=== PATIENT | male | born 1945 | race Caucasian/White ===

== ENCOUNTER 2018-03-11 09:30 | Inpatient (IN) ==
[~2018-03-11 09:30] MED LIST: BACITRACIN IR ONE; NEOSTIGMINE INJ ONE; [UNRECOGNIZED DRUG - OTHER] IR ONE
[2018-03-11] MEDS ORDERED: LR 1000 ML IV 1,000 ML IV ONE ×3 (09:59→12:59)
[2018-03-11] MEDS ORDERED: ANCEF 1 GRAM IV PREMIX* 1 G/50 ML BAG IV ONE (09:59)
[2018-03-11 10:15] VITALS: BMI 23.5
[2018-03-11] MEDS ORDERED: FENTANYL INJ 100 mcg ONE ×2 (10:41→11:29)
[2018-03-11] MEDS ORDERED: DILAUDID INJ ONE ×2 (10:41→13:20)
[2018-03-11] MEDS ORDERED: FENTANYL INJ 250 mcg ONE (10:41)
[2018-03-11] MEDS ORDERED: LEVAQUIN PREMIX IV 500 MG 500 MG/100 ML BAG IV ONE (11:11)
[2018-03-11 11:15] LABS: HEMATOCRIT 31.5 % (42.0-54.0); HEMOGLOBIN 10.1 g/dL (13.5-18.0)
[2018-03-11 11:24] LABS: BILIRUBIN,URINE NEGATIVE (NEGATIVE); BLOOD/HEMOGLOBIN,URINE 3+ (NEGATIVE); GLUCOSE, URINE NEGATIVE (NEGATIVE); KETONES,URINE NEGATIVE (NEGATIVE); LEUKOCYTE ESTERASE ,URINE NEGATIVE (NEGATIVE); NITRITES,URINE NEGATIVE (NEGATIVE); PROTEIN,URINE 2+ (NEGATIVE); UROBILINOGEN,URINE NORMAL (NORMAL)
[2018-03-11 11:33] LABS: APPEARANCE,URINE SLIGHTLY HAZY (CLEAR); COLOR,URINE YELLOW (YELLOW)
[2018-03-11 11:34] LABS: BACTERIA,URINE TRACE /HPF (NEGATIVE); MUCUS,URINE MANY /HPF (NEGATIVE); SQUAMOUS EPITHELIAL CELL,UR RARE /HPF (NEGATIVE)
[2018-03-11] MEDS ORDERED: BREVIBLOC ONE (13:42)
[2018-03-11] MEDS ORDERED: ZOFRAN INJ 4 MG VIAL IVP PRN (14:00)
[2018-03-11] MEDS ORDERED: PHENERGAN INJ 25 MG IVP PRN (14:00)
[2018-03-11] MEDS ORDERED: REGLAN INJ 10 MG VIAL IVP PRN (14:00)
[2018-03-11] MEDS ORDERED: BENADRYL INJ 50 MG VIAL IVP PRN (14:00)
[2018-03-11] MEDS ORDERED: DILAUDID INJ IVP PRN (14:00)
--- NOTE | 2018-03-11 14:47 | OR.GENERIC ---
Post-Op Note Generic - Post-Op Note Operative Report: exploratory laparotomy , resection of T colon with primary anastomosis . mobilization of splenic ,and hepatic flexures, omentectomy . . liver Bx x 2. 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 at least two liver nodules . palpable mesenteric nodes .. Pt did well , EBL 200 cc . on IVF .ATB for 24 h . DVT prophylaxis .
[2018-03-11] MEDS ORDERED: DIPRIVAN VIAL ONE (15:06)
[2018-03-11] MEDS ORDERED: ULTANE GAS IN ONE (15:06)
[2018-03-11] MEDS ORDERED: EPHEDRINE SULFATE INJ ONE (15:06)
[2018-03-11] MEDS ORDERED: QUELICIN (OR ANECTINE) ONE (15:06)
[2018-03-11] MEDS ORDERED: ZOFRAN INJ 4 MG VIAL ONE (15:06)
[2018-03-11] MEDS ORDERED: NORCURON INJ 10 MG VIAL ONE (15:06)
[2018-03-11] MEDS ORDERED: LTA KIT LIDOCAINE 4% ONE (15:06)
[2018-03-11] MEDS ORDERED: VERSED ONE (15:06)
[2018-03-11] MEDS ORDERED: ROBINUL ONE (15:06)
[2018-03-11] MEDS: D5 1/2 NS 1000 ML 1,000 ML IV SCH ×2 (15:25→22:00)
--- NOTE | 2018-03-11 16:07 | RAD ---
Indication: Tube placement Exam: KUB Technique: Supine view. Comparison: 01/14/2018 Findings: The gas pattern is unremarkable. There is a gastric tube in place the tip in the fundus of the stomach. Impression: Gastric tube tip along the fundus of the stomach. Reported By:
[2018-03-11] MEDS: DILAUDID INJ IVP PRN ×2 (19:35→23:32)
[2018-03-12] MEDS: D5 1/2 NS 1000 ML 1,000 ML IV SCH ×4 (04:23→17:46)
[2018-03-12 04:29] LABS: BASOPHILS % (AUTO) 0.4 % (0.2-1.0); HEMATOCRIT 26.4 % (42.0-54.0); HEMOGLOBIN 8.6 g/dL (13.5-18.0); LYMPHOCYTES # (AUTO) 0.7 X10^3/uL (1.3-2.9); LYMPHOCYTES % (AUTO) 9.3 % (21.0-51.0); MEAN CORPUSCULAR HEMOGLOBIN 23.1 pg (27.0-34.0); MEAN CORPUSCULAR HGB CONC 32.4 g/dL (33.0-35.0); MEAN CORPUSCULAR VOLUME 71.3 fL (80.0-100.0); MEAN PLATELET VOLUME 7.5 fL (7.4-11.0); MONOCYTES # (AUTO) 0.5 x10^3/uL (0.3-0.8); MONOCYTES % (AUTO) 7.1 % (0.0-13.0); NEUTROPHILS # (AUTO) 6.3 x10^3/uL (2.2-4.8); NEUTROPHILS % (AUTO) 83.2 % (42.0-75.0); PLATELET COUNT 274 X10^3/uL (150.0-450.0); WHITE BLOOD COUNT 7.6 X10^3/uL (3.6-10.0)
[2018-03-12 04:38] LABS: HYPOCHROMASIA 1+; PLATELET MORPHOLOGY COMMENT NORMAL (NORMAL)
[2018-03-12 04:40] LABS: ALANINE AMINOTRANSFERASE 15 Units/L (12-78); ALBUMIN 2.6 g/dL (3.4-5.0); ALKALINE PHOSPHATASE 50 Units/L (46-116); ASPARTATE AMINO TRANSFERASE 22 Units/L (15-37); BLOOD UREA NITROGEN 8 mg/dL (7-18); CALCIUM 8.1 mg/dL (8.5-10.1); CARBON DIOXIDE 25.3 mmol/L (21-32); CHLORIDE 101 mmol/L (98-107); COR CA(FOR HYPOALB) 9.2 mg/dL (8.5-10.1); COR NA(FOR HYPERGLY) 137 mmol/L (136-145); CREATININE 0.93 mg/dL (0.70-1.30); SODIUM 135 mmol/L (136-145); TOTAL PROTEIN 6.5 g/dL (6.4-8.2); eGFR NON BLACK RACES > 60 (>60)
[2018-03-12] MEDS: DILAUDID INJ IVP PRN ×4 (07:40→18:30)
[2018-03-12] MEDS: LEVAQUIN PREMIX IV 500 MG 500 MG/100 ML BAG IV SCH (08:07)
[2018-03-12] MEDS: PROTONIX INJ 40 MG VIAL IVP SCH (08:07)
[2018-03-12] MEDS: LOVENOX INJ 40 MG SYR SC SCH (08:07)
--- NOTE | 2018-03-12 08:47 | DR.PROGNOT ---
Hospital Progress Notes - Progress Note for Day of: Progress Note Date: 03/12/18 - Chief Complaint Chief Complaint: post op resection of transverse colon , omentectomy , liver Bx . doing fairly well ,. c/o incisional pain , Lab work WNL . - Past Medical Family Social History Past Med/Fam/Surg Hx: No changes since H&P Allergies: Allergies No Known Allergies Allergy (Verified 03/11/18 14:06) - Review Of Systems ROS: No change since H&P - Vital Signs Vital Signs: Temperature 98.2 F Pulse Rate [Right Brachial] 88 Pulse Rate 97 Respiratory Rate 20 Blood Pressure [Right Arm] 127/76 Blood Pressure 172/87 O2 Sat by Pulse Oximetry 97 - Physical Exam Oriented: Normal Eyes: Normal Ear: Normal Nose: Normal Cardiovascular: Normal : Normal GI:Auscultation: Decreased GI:Palpation: Normal GI: Tenderness: Diffuse, Moderate Mood Description: Calm Speech Pattern: Clear, Appropriate - Laboratory and Diagnostics Result Diagrams: 03/12/18 04:20 03/12/18 04:20 Labs: Laboratory WBC 7.6 X10^3/uL (3.6-10.0) 03/12/18 04:20 RBC 3.70 X10^6/uL (4.7-6.0) L 03/12/18 04:20 Hgb 8.6 g/dL (13.5-18.0) L 03/12/18 04:20 Hct 26.4 % (42.0-54.0) L 03/12/18 04:20 MCV 71.3 fL (80.0-100.0) L 03/12/18 04:20 MCH 23.1 pg (27.0-34.0) L 03/12/18 04:20 MCHC 32.4 g/dL (33.0-35.0) L 03/12/18 04:20 RDW 18.0 % (11.6-16.5) H 03/12/18 04:20 Plt Count 274 X10^3/uL (150.0-450.0) 03/12/18 04:20 Plt Count Comment Adequate (ADEQUATE) 03/12/18 04:20 MPV 7.5 fL (7.4-11.0) 03/12/18 04:20 Neut % (Auto) 83.2 % (42.0-75.0) H 03/12/18 04:20 Lymph % (Auto) 9.3 % (21.0-51.0) L 03/12/18 04:20 [place] % (Auto) 7.1 % (0.0-13.0) 03/12/18 04:20 Eos % (Auto) 0.0 % (0.9-2.9) L 03/12/18 04:20 Baso % (Auto) 0.4 % (0.2-1.0) 03/12/18 04:20 Neut # (Auto) 6.3 x10^3/uL (2.2-4.8) H 03/12/18 04:20 Lymph # (Auto) 0.7 X10^3/uL (1.3-2.9) L 03/12/18 04:20 [place] # (Auto) 0.5 x10^3/uL (0.3-0.8) 03/12/18 04:20 Eos # (Auto) 0.0 x10^3/uL (0.0-0.2) 03/12/18 04:20 Baso # (Auto) 0.0 X10^3/uL (0.0-0.1) 03/12/18 04:20 Absolute Nucleated RBC 0.0 /100WBC 03/12/18 04:20 Plt Morphology Comment Normal (NORMAL) 03/12/18 04:20 RBC Morphology Abnormal (NORMAL) 03/12/18 04:20 Hypochromasia 1+ A 03/12/18 04:20 Sodium 135 mmol/L (136-145) L 03/12/18 04:20 Corrected Sodium 137 mmol/L (136-145) 03/12/18 04:20 Potassium 4.7 mmol/L (3.5-5.1) 03/12/18 04:20 Chloride 101 mmol/L (98-107) 03/12/18 04:20 Carbon Dioxide 25.3 mmol/L (21-32) 03/12/18 04:20 BUN 8 mg/dL (7-18) 03/12/18 04:20 Creatinine 0.93 mg/dL (0.70-1.30) 03/12/18 04:20 Est GFR (MDRD) Af Amer > 60 (>60) 03/12/18 04:20 Est GFR (MDRD) Non-Af > 60 (>60) 03/12/18 04:20 Glucose 188 mg/dL (65-99) H 03/12/18 04:20 Calcium 8.1 mg/dL (8.5-10.1) L 03/12/18 04:20 Corrected Calcium 9.2 mg/dL (8.5-10.1) 03/12/18 04:20 Total Bilirubin 0.20 mg/dL (0.2-1.0) 03/12/18 04:20 AST 22 Units/L (15-37) 03/12/18 04:20 ALT 15 Units/L (12-78) 03/12/18 04:20 Alkaline Phosphatase 50 Units/L (46-116) 03/12/18 04:20 Total Protein 6.5 g/dL (6.4-8.2) 03/12/18 04:20 Albumin 2.6 g/dL (3.4-5.0) L 03/12/18 04:20 Globulin 3.9 g/dL (2.5-4.5) 03/12/18 04:20 Albumin/Globulin Ratio 0.7 Ratio (1.1-2.1) L 03/12/18 04:20 Specimen Type Catherized urine 03/11/18 11:02 Urine Color Yellow (YELLOW) 03/11/18 11:02 Urine Appearance Slightly hazy (CLEAR) 03/11/18 11:02 Urine pH 5.0 (5.0 - 8.0) 03/11/18 11:02 Ur Specific [place] 1.025 (1.000-1.030) 03/11/18 11:02 Urine Protein 2+ (NEGATIVE) 03/11/18 11:02 Urine Glucose (UA) Negative (NEGATIVE) 03/11/18 11:02 Urine Ketones Negative (NEGATIVE) 03/11/18 11:02 Urine Occult Blood 3+ (NEGATIVE) 03/11/18 11:02 Urine Nitrite Negative (NEGATIVE) 03/11/18 11:02 Urine Bilirubin Negative (NEGATIVE) 03/11/18 11:02 Urine Urobilinogen Normal (NORMAL) 03/11/18 11:02 Ur Leukocyte Esterase Negative (NEGATIVE) 03/11/18 11:02 Urine RBC 5-10 /HPF (NONE SEEN) 03/11/18 11:02 Urine WBC 3-5 /HPF (NONE SEEN) 03/11/18 11:02 Ur Squamous Epith Cells Rare /HPF (NEGATIVE) 03/11/18 11:02 Urine Bacteria Trace /HPF (NEGATIVE) 03/11/18 11:02 Urine Mucus Many /HPF (NEGATIVE) 03/11/18 11:02 Ur Culture Indicated? No/not indicated 03/11/18 11:02 Surg PTH Frozen Section Cancelled 03/11/18 13:16 Tissue Pathology To follow 03/11/18 13:16 Blood Type B POSITIVE 03/11/18 11:09 Antibody Screen Negative 03/11/18 11:09 Crossmatch See Detail 03/11/18 11:09 - Assessment and Plan 1: transverse colon ca , s/p resection and liver Bx. post op day 1. OOB , incentive spirometer , DVT prophylaxis .
[2018-03-13] MEDS: D5 1/2 NS 1000 ML 1,000 ML IV SCH ×4 (00:42→22:00)
[2018-03-13] MEDS: DILAUDID INJ IVP PRN ×4 (01:09→23:12)
[2018-03-13 06:04] LABS: BASOPHILS % (AUTO) 0.4 % (0.2-1.0); EOSINOPHILS % (AUTO) 0.2 % (0.9-2.9); HEMATOCRIT 25.1 % (42.0-54.0); HEMOGLOBIN 8.2 g/dL (13.5-18.0); LYMPHOCYTES % (AUTO) 9.6 % (21.0-51.0); MEAN CORPUSCULAR HEMOGLOBIN 23.2 pg (27.0-34.0); MEAN CORPUSCULAR HGB CONC 32.5 g/dL (33.0-35.0); MEAN CORPUSCULAR VOLUME 71.4 fL (80.0-100.0); MEAN PLATELET VOLUME 8.3 fL (7.4-11.0); MONOCYTES # (AUTO) 0.7 x10^3/uL (0.3-0.8); MONOCYTES % (AUTO) 6.1 % (0.0-13.0); NEUTROPHILS % (AUTO) 83.7 % (42.0-75.0); PLATELET COUNT 267 X10^3/uL (150.0-450.0); RED BLOOD COUNT 3.52 X10^6/uL (4.7-6.0); RED CELL DISTRIBUTION WIDTH 17.9 % (11.6-16.5); WHITE BLOOD COUNT 10.8 X10^3/uL (3.6-10.0)
[2018-03-13 06:04] LABS: BILIRUBIN,URINE NEGATIVE (NEGATIVE); BLOOD/HEMOGLOBIN,URINE 2+ (NEGATIVE); GLUCOSE, URINE NEGATIVE (NEGATIVE); KETONES,URINE NEGATIVE (NEGATIVE); LEUKOCYTE ESTERASE ,URINE NEGATIVE (NEGATIVE); NITRITES,URINE NEGATIVE (NEGATIVE); PROTEIN,URINE NEGATIVE (NEGATIVE); UROBILINOGEN,URINE NORMAL (NORMAL)
[2018-03-13 06:15] LABS: APPEARANCE,URINE CLEAR (CLEAR); COLOR,URINE YELLOW (YELLOW)
[2018-03-13 06:16] LABS: BACTERIA,URINE NEGATIVE /HPF (NEGATIVE); SQUAMOUS EPITHELIAL CELL,UR RARE /HPF (NEGATIVE)
[2018-03-13 06:31] LABS: ALANINE AMINOTRANSFERASE 19 Units/L (12-78); ALBUMIN 2.5 g/dL (3.4-5.0); ALKALINE PHOSPHATASE 51 Units/L (46-116); ASPARTATE AMINO TRANSFERASE 29 Units/L (15-37); BLOOD UREA NITROGEN 4 mg/dL (7-18); CALCIUM 8.4 mg/dL (8.5-10.1); CARBON DIOXIDE 26.9 mmol/L (21-32); CHLORIDE 99 mmol/L (98-107); COR CA(FOR HYPOALB) 9.6 mg/dL (8.5-10.1); COR NA(FOR HYPERGLY) 133 mmol/L (136-145); CREATININE 0.96 mg/dL (0.70-1.30); SODIUM 132 mmol/L (136-145); TOTAL PROTEIN 6.7 g/dL (6.4-8.2); eGFR NON BLACK RACES > 60 (>60)
[2018-03-13 07:05] LABS: HYPOCHROMASIA 1+; PLATELET MORPHOLOGY COMMENT NORMAL (NORMAL)
[2018-03-13] MEDS: LEVAQUIN PREMIX IV 500 MG 500 MG/100 ML BAG IV SCH (08:16)
[2018-03-13] MEDS: LOVENOX INJ 40 MG SYR SC SCH (08:17)
[2018-03-13] MEDS: PROTONIX INJ 40 MG VIAL IVP SCH (08:17)
--- NOTE | 2018-03-13 09:00 | DR.PROGNOT ---
Hospital Progress Notes - Progress Note for Day of: Progress Note Date: 03/13/18 - Chief Complaint Chief Complaint: post op resection of transverse colon , omentectomy , liver Bx .day 2. had urinary retention last night ,mild low grade fever ,. , Lab work WNL . - Past Medical Family Social History Past Med/Fam/Surg Hx: No changes since H&P Allergies: Allergies No Known Allergies Allergy (Verified 03/11/18 14:06) - Review Of Systems ROS: No change since H&P - Vital Signs Vital Signs: Temperature 99.6 F Pulse Rate [Right Brachial] 90 Pulse Rate 97 Respiratory Rate 20 Blood Pressure [Right Arm] 102/56 Blood Pressure 172/87 O2 Sat by Pulse Oximetry 90 - Physical Exam Oriented: Normal Eyes: Normal Ear: Normal Nose: Normal Cardiovascular: Normal : Normal GI:Auscultation: Decreased GI:Palpation: Normal GI: Tenderness: Diffuse, Moderate Mood Description: Calm Speech Pattern: Clear, Appropriate - Laboratory and Diagnostics Result Diagrams: 03/13/18 05:21 03/13/18 05:21 Labs: Laboratory WBC 10.8 X10^3/uL (3.6-10.0) H 03/13/18 05:21 RBC 3.52 X10^6/uL (4.7-6.0) L 03/13/18 05:21 Hgb 8.2 g/dL (13.5-18.0) L 03/13/18 05:21 Hct 25.1 % (42.0-54.0) L 03/13/18 05:21 MCV 71.4 fL (80.0-100.0) L 03/13/18 05:21 MCH 23.2 pg (27.0-34.0) L 03/13/18 05:21 MCHC 32.5 g/dL (33.0-35.0) L 03/13/18 05:21 RDW 17.9 % (11.6-16.5) H 03/13/18 05:21 Plt Count 267 X10^3/uL (150.0-450.0) 03/13/18 05:21 Plt Count Comment Adequate (ADEQUATE) 03/13/18 05:21 MPV 8.3 fL (7.4-11.0) 03/13/18 05:21 Neut % (Auto) 83.7 % (42.0-75.0) H 03/13/18 05:21 Lymph % (Auto) 9.6 % (21.0-51.0) L 03/13/18 05:21 [place] % (Auto) 6.1 % (0.0-13.0) 03/13/18 05:21 Eos % (Auto) 0.2 % (0.9-2.9) L 03/13/18 05:21 Baso % (Auto) 0.4 % (0.2-1.0) 03/13/18 05:21 Neut # (Auto) 9.0 x10^3/uL (2.2-4.8) H 03/13/18 05:21 Lymph # (Auto) 1.0 X10^3/uL (1.3-2.9) L 03/13/18 05:21 [place] # (Auto) 0.7 x10^3/uL (0.3-0.8) 03/13/18 05:21 Eos # (Auto) 0.0 x10^3/uL (0.0-0.2) 03/13/18 05:21 Baso # (Auto) 0.0 X10^3/uL (0.0-0.1) 03/13/18 05:21 Absolute Nucleated RBC 0.0 /100WBC 03/13/18 05:21 Plt Morphology Comment Normal (NORMAL) 03/13/18 05:21 RBC Morphology Abnormal (NORMAL) 03/13/18 05:21 Hypochromasia 1+ A 03/13/18 05:21 Sodium 132 mmol/L (136-145) L 03/13/18 05:21 Corrected Sodium 133 mmol/L (136-145) L 03/13/18 05:21 Potassium 4.0 mmol/L (3.5-5.1) 03/13/18 05:21 Chloride 99 mmol/L (98-107) 03/13/18 05:21 Carbon Dioxide 26.9 mmol/L (21-32) 03/13/18 05:21 BUN 4 mg/dL (7-18) L 03/13/18 05:21 Creatinine 0.96 mg/dL (0.70-1.30) 03/13/18 05:21 Est GFR (MDRD) Af Amer > 60 (>60) 03/13/18 05:21 Est GFR (MDRD) Non-Af > 60 (>60) 03/13/18 05:21 Glucose 125 mg/dL (65-99) H 03/13/18 05:21 Calcium 8.4 mg/dL (8.5-10.1) L 03/13/18 05:21 Corrected Calcium 9.6 mg/dL (8.5-10.1) 03/13/18 05:21 Total Bilirubin 0.40 mg/dL (0.2-1.0) 03/13/18 05:21 AST 29 Units/L (15-37) 03/13/18 05:21 ALT 19 Units/L (12-78) 03/13/18 05:21 Alkaline Phosphatase 51 Units/L (46-116) 03/13/18 05:21 Total Protein 6.7 g/dL (6.4-8.2) 03/13/18 05:21 Albumin 2.5 g/dL (3.4-5.0) L 03/13/18 05:21 Globulin 4.2 g/dL (2.5-4.5) 03/13/18 05:21 Albumin/Globulin Ratio 0.6 Ratio (1.1-2.1) L 03/13/18 05:21 Specimen Type Catherized urine 03/13/18 05:53 Urine Color Yellow (YELLOW) 03/13/18 05:53 Urine Appearance Clear (CLEAR) 03/13/18 05:53 Urine pH 6.0 (5.0 - 8.0) 03/13/18 05:53 Ur Specific [place] 1.010 (1.000-1.030) 03/13/18 05:53 Urine Protein Negative (NEGATIVE) 03/13/18 05:53 Urine Glucose (UA) Negative (NEGATIVE) 03/13/18 05:53 Urine Ketones Negative (NEGATIVE) 03/13/18 05:53 Urine Occult Blood 2+ (NEGATIVE) 03/13/18 05:53 Urine Nitrite Negative (NEGATIVE) 03/13/18 05:53 Urine Bilirubin Negative (NEGATIVE) 03/13/18 05:53 Urine Urobilinogen Normal (NORMAL) 03/13/18 05:53 Ur Leukocyte Esterase Negative (NEGATIVE) 03/13/18 05:53 Urine RBC 3-5 /HPF (NONE SEEN) 03/13/18 05:53 Urine WBC None seen /HPF (NONE SEEN) 03/13/18 05:53 Ur Squamous Epith Cells Rare /HPF (NEGATIVE) 03/13/18 05:53 Urine Bacteria Negative /HPF (NEGATIVE) 03/13/18 05:53 Urine Mucus Many /HPF (NEGATIVE) 03/11/18 11:02 Ur Culture Indicated? No/not indicated 03/13/18 05:53 Surg PTH Frozen Section Cancelled 03/11/18 13:16 Tissue Pathology To follow 03/11/18 13:16 Blood Type B POSITIVE 03/11/18 11:09 Antibody Screen Negative 03/11/18 11:09 Crossmatch See Detail 03/11/18 11:09 - Assessment and Plan 1: transverse colon ca , s/p resection and liver Bx. post op day 2. urinary retention. OOB , incentive spirometer , DVT prophylaxis . d/c ATB. start full liquid ,small amount only
[2018-03-13] MEDS: PHENERGAN INJ 25 MG IV PRN (23:12)
[2018-03-14] MEDS: D5 1/2 NS 1000 ML 1,000 ML IV SCH ×4 (04:36→09:32)
[2018-03-14] MEDS: PHENERGAN INJ 25 MG IV PRN ×2 (05:31→10:50)
[2018-03-14 06:17] LABS: BASOPHILS % (AUTO) 0.3 % (0.2-1.0); EOSINOPHILS % (AUTO) 0.2 % (0.9-2.9); HEMATOCRIT 23.6 % (42.0-54.0); HEMOGLOBIN 7.7 g/dL (13.5-18.0); LYMPHOCYTES # (AUTO) 0.7 X10^3/uL (1.3-2.9); LYMPHOCYTES % (AUTO) 10.7 % (21.0-51.0); MEAN CORPUSCULAR HEMOGLOBIN 23.2 pg (27.0-34.0); MEAN CORPUSCULAR HGB CONC 32.8 g/dL (33.0-35.0); MEAN CORPUSCULAR VOLUME 70.8 fL (80.0-100.0); MONOCYTES # (AUTO) 0.5 x10^3/uL (0.3-0.8); MONOCYTES % (AUTO) 7.5 % (0.0-13.0); NEUTROPHILS # (AUTO) 5.6 x10^3/uL (2.2-4.8); NEUTROPHILS % (AUTO) 81.3 % (42.0-75.0); PLATELET COUNT 236 X10^3/uL (150.0-450.0); RED BLOOD COUNT 3.33 X10^6/uL (4.7-6.0); RED CELL DISTRIBUTION WIDTH 18.1 % (11.6-16.5); WHITE BLOOD COUNT 6.9 X10^3/uL (3.6-10.0)
[2018-03-14 06:27] LABS: ALANINE AMINOTRANSFERASE 16 Units/L (12-78); ALBUMIN 2.2 g/dL (3.4-5.0); ALKALINE PHOSPHATASE 50 Units/L (46-116); ASPARTATE AMINO TRANSFERASE 22 Units/L (15-37); BLOOD UREA NITROGEN 4 mg/dL (7-18); CALCIUM 8.3 mg/dL (8.5-10.1); CARBON DIOXIDE 28.8 mmol/L (21-32); CHLORIDE 102 mmol/L (98-107); COR CA(FOR HYPOALB) 9.7 mg/dL (8.5-10.1); COR NA(FOR HYPERGLY) 135 mmol/L (136-145); CREATININE 0.92 mg/dL (0.70-1.30); SODIUM 134 mmol/L (136-145); TOTAL PROTEIN 6.1 g/dL (6.4-8.2); eGFR NON BLACK RACES > 60 (>60)
[2018-03-14 07:12] LABS: HYPOCHROMASIA 1+; PLATELET MORPHOLOGY COMMENT NORMAL (NORMAL)
[2018-03-14] MEDS: PROTONIX INJ 40 MG VIAL IVP SCH (08:11)
[2018-03-14] MEDS: LOVENOX INJ 40 MG SYR SC SCH (08:12)
--- NOTE | 2018-03-14 09:09 | DR.CONSULT ---
Consult - Consultation for Day of: Date: 03/13/18 - Chief Complaint Chief Complaint: Mr. Garnett is a 72-year-old white male who was admitted to Dr. Hanna, Surgeon. He is postop resection of transverse colon, omentectomy, and liver biopsy. He is doing fairly well this morning. The patient continues with central abdominal dressing with a [place] drain. NG tube removed and advanced to full liquid diet, pain controlled - Past Medical History Past Medical History: Anemia, GERD Additional Medical History: colon mass - Family History Family Medical History: Cancer, Hypertension - Social History Does patient currently use any type of tobacco product: No Have you used tobacco products in the last 12 months: No Type of Tobacco Use: None Does any household member use tobacco: No Alcohol Use: None Drug Use: None - Medications Home Medications: No Known Allergies Allergy (Verified 03/11/18 14:06) CONTINUE taking the following medications meclizine 1 tab PO Q6HR PRN 03/13/18 [History] - Review of Systems Constitutional: No Symptoms Reported Eyes: No Symptoms Reported ENT: No Symptoms Reported Respiratory: No Symptoms Reported Cardiovascular: No Symptoms Reported Gastrointestinal: Abdominal Pain Genitourinary: No Symptoms Reported Musculoskeletal: No Symptoms Reported Skin: Wound Neurological: No Symptoms Reported - Physical Exam Vital Signs: Temperature 98.1 F Pulse Rate [Right Brachial] 78 Pulse Rate 97 Respiratory Rate 20 Blood Pressure [Right Arm] 117/66 Blood Pressure 172/87 O2 Sat by Pulse Oximetry 93 Oriented: Normal Eyes: Normal Ear: Normal Nose: Normal Throat: Normal Respiratory: RLL Diminished, LLL Diminished Cardiovascular: Normal, Edema : Normal Auscultation: Bowel Sounds: Decreased Tenderness: Diffuse (post operative pain) Skin: Wound (central abdominal wound, clean dry intact dressing, beryl drain) Musculoskeletal: Normal Psychiatric: Normal Mood Description: Calm Speech Pattern: Clear, Appropriate - Plan Plan: supportive care, monitor H & H, following posterative wound care, diet and activity as ordered by dr HANNA - Allergies Allergies/Adverse Reactions: Allergies Allergy/AdvReac Type Severity Reaction Status Date / Time No Known Allergies Allergy Verified 03/11/18 14:06
[2018-03-14] MEDS: NS 1000 ML 1,000 ML IV SCH (10:08)
[2018-03-14] MEDS: DILAUDID INJ IVP PRN (10:50)
[2018-03-14] MEDS ORDERED: NS 250 ML IV 250 ML IV ONE ×2 (14:17→22:34)
[2018-03-14] MEDS ORDERED: TYLENOL 325 MG TAB PO ONE (22:52)
[2018-03-15 04:48] LABS: BASOPHILS % (AUTO) 0.7 % (0.2-1.0); EOSINOPHILS # (AUTO) 0.1 x10^3/uL (0.0-0.2); EOSINOPHILS % (AUTO) 1.3 % (0.9-2.9); HEMATOCRIT 29.4 % (42.0-54.0); HEMOGLOBIN 9.8 g/dL (13.5-18.0); LYMPHOCYTES % (AUTO) 14.8 % (21.0-51.0); MEAN CORPUSCULAR HEMOGLOBIN 24.9 pg (27.0-34.0); MEAN CORPUSCULAR HGB CONC 33.2 g/dL (33.0-35.0); MEAN CORPUSCULAR VOLUME 74.8 fL (80.0-100.0); MEAN PLATELET VOLUME 7.9 fL (7.4-11.0); MONOCYTES # (AUTO) 0.4 x10^3/uL (0.3-0.8); MONOCYTES % (AUTO) 6.5 % (0.0-13.0); NEUTROPHILS % (AUTO) 76.7 % (42.0-75.0); PLATELET COUNT 229 X10^3/uL (150.0-450.0); RED BLOOD COUNT 3.93 X10^6/uL (4.7-6.0); RED CELL DISTRIBUTION WIDTH 20.2 % (11.6-16.5); WHITE BLOOD COUNT 6.5 X10^3/uL (3.6-10.0)
[2018-03-15 05:01] LABS: ALANINE AMINOTRANSFERASE 19 Units/L (12-78); ALBUMIN 2.1 g/dL (3.4-5.0); ALKALINE PHOSPHATASE 52 Units/L (46-116); ASPARTATE AMINO TRANSFERASE 21 Units/L (15-37); BLOOD UREA NITROGEN 7 mg/dL (7-18); CALCIUM 8.1 mg/dL (8.5-10.1); CARBON DIOXIDE 27.5 mmol/L (21-32); CHLORIDE 104 mmol/L (98-107); COR CA(FOR HYPOALB) 9.6 mg/dL (8.5-10.1); CREATININE 0.97 mg/dL (0.70-1.30); SODIUM 137 mmol/L (136-145); TOTAL PROTEIN 5.8 g/dL (6.4-8.2); eGFR NON BLACK RACES > 60 (>60)
[2018-03-15 05:13] LABS: ANISOCYTOSIS 1+; PLATELET MORPHOLOGY COMMENT NORMAL (NORMAL)
[2018-03-15] MEDS: NS 1000 ML 1,000 ML IV SCH ×3 (05:14→22:19)
[2018-03-15] MEDS: FLOMAX PO SCH (09:07)
[2018-03-15] MEDS: PROTONIX INJ 40 MG VIAL IVP SCH (09:08)
[2018-03-15] MEDS: DILAUDID INJ IVP PRN (09:08)
[2018-03-15] MEDS: PHENERGAN INJ 25 MG IV PRN (09:08)
[2018-03-15] MEDS: LOVENOX INJ 40 MG SYR SC SCH (09:09)
[2018-03-15] MEDS: NORCO 5/325 MG TAB PO PRN (16:26)
[2018-03-16] MEDS ORDERED: TYLENOL 325 MG TAB PO PRN (00:41)
[2018-03-16 05:08] LABS: BASOPHILS % (AUTO) 0.4 % (0.2-1.0); EOSINOPHILS # (AUTO) 0.1 x10^3/uL (0.0-0.2); EOSINOPHILS % (AUTO) 1.3 % (0.9-2.9); HEMATOCRIT 29.6 % (42.0-54.0); HEMOGLOBIN 9.8 g/dL (13.5-18.0); LYMPHOCYTES # (AUTO) 0.8 X10^3/uL (1.3-2.9); LYMPHOCYTES % (AUTO) 11.7 % (21.0-51.0); MEAN CORPUSCULAR HEMOGLOBIN 24.4 pg (27.0-34.0); MEAN CORPUSCULAR HGB CONC 33.1 g/dL (33.0-35.0); MEAN CORPUSCULAR VOLUME 73.7 fL (80.0-100.0); MEAN PLATELET VOLUME 7.9 fL (7.4-11.0); MONOCYTES # (AUTO) 0.5 x10^3/uL (0.3-0.8); MONOCYTES % (AUTO) 6.6 % (0.0-13.0); NEUTROPHILS # (AUTO) 5.5 x10^3/uL (2.2-4.8); PLATELET COUNT 217 X10^3/uL (150.0-450.0); RED BLOOD COUNT 4.01 X10^6/uL (4.7-6.0); RED CELL DISTRIBUTION WIDTH 20.4 % (11.6-16.5); WHITE BLOOD COUNT 6.9 X10^3/uL (3.6-10.0)
[2018-03-16 05:18] LABS: ALANINE AMINOTRANSFERASE 17 Units/L (12-78); ALKALINE PHOSPHATASE 54 Units/L (46-116); ASPARTATE AMINO TRANSFERASE 19 Units/L (15-37); BLOOD UREA NITROGEN 6 mg/dL (7-18); CALCIUM 7.9 mg/dL (8.5-10.1); CARBON DIOXIDE 25.1 mmol/L (21-32); CHLORIDE 103 mmol/L (98-107); COR CA(FOR HYPOALB) 9.5 mg/dL (8.5-10.1); CREATININE 0.79 mg/dL (0.70-1.30); SODIUM 136 mmol/L (136-145); TOTAL PROTEIN 5.6 g/dL (6.4-8.2); eGFR NON BLACK RACES > 60 (>60)
[2018-03-16 05:33] LABS: PLATELET MORPHOLOGY COMMENT NORMAL (NORMAL)
[2018-03-16 05:34] LABS: ANISOCYTOSIS 1+; HYPOCHROMASIA 1+; MICROCYTOSIS SLIGHT
[2018-03-16] MEDS: NS 1000 ML 1,000 ML IV SCH (06:04)
[2018-03-16] MEDS: FLOMAX PO SCH (08:25)
[2018-03-16] MEDS: LOVENOX INJ 40 MG SYR SC SCH (08:25)
[2018-03-16] MEDS: PROTONIX INJ 40 MG VIAL IVP SCH (08:25)
--- NOTE | 2018-03-16 08:25 | DR.PROGNOT ---
Hospital Progress Notes - Progress Note for Day of: Progress Note Date: 03/16/18 - Chief Complaint Chief Complaint: post op resection of transverse colon , omentectomy , liver Bx .day 5. able to void without need for cath ,mild low grade fever today , passing flatus. , Lab work WNL . - Past Medical Family Social History Past Med/Fam/Surg Hx: No changes since H&P Allergies: Allergies No Known Allergies Allergy (Verified 03/11/18 14:06) - Review Of Systems ROS: No change since H&P - Vital Signs Vital Signs: Temperature 97.7 F Pulse Rate [Right Brachial] 76 Pulse Rate 97 Respiratory Rate 20 Blood Pressure [Right Arm] 125/76 Blood Pressure 172/87 O2 Sat by Pulse Oximetry 96 - Physical Exam Oriented: Normal Eyes: Normal Ear: Normal Nose: Normal Throat: Normal Cardiovascular: Normal, Edema : Normal GI:Auscultation: Decreased GI:Palpation: Normal GI: Tenderness: Diffuse (soft abdomen , BS+) Skin: Wound (central abdominal wound, clean dry intact dressing, beryl drain) Musculoskeletal: Normal Psychiatric: Normal Mood Description: Calm Speech Pattern: Clear, Appropriate - Laboratory and Diagnostics Result Diagrams: 03/16/18 04:34 03/16/18 04:34 Labs: Laboratory WBC 6.9 X10^3/uL (3.6-10.0) 03/16/18 04:34 RBC 4.01 X10^6/uL (4.7-6.0) L 03/16/18 04:34 Hgb 9.8 g/dL (13.5-18.0) L 03/16/18 04:34 Hct 29.6 % (42.0-54.0) L 03/16/18 04:34 MCV 73.7 fL (80.0-100.0) L 03/16/18 04:34 MCH 24.4 pg (27.0-34.0) L 03/16/18 04:34 MCHC 33.1 g/dL (33.0-35.0) 03/16/18 04:34 RDW 20.4 % (11.6-16.5) H 03/16/18 04:34 Plt Count 217 X10^3/uL (150.0-450.0) 03/16/18 04:34 Plt Count Comment Adequate (ADEQUATE) 03/16/18 04:34 MPV 7.9 fL (7.4-11.0) 03/16/18 04:34 Neut % (Auto) 80.0 % (42.0-75.0) H 03/16/18 04:34 Lymph % (Auto) 11.7 % (21.0-51.0) L 03/16/18 04:34 [place] % (Auto) 6.6 % (0.0-13.0) 03/16/18 04:34 Eos % (Auto) 1.3 % (0.9-2.9) 03/16/18 04:34 Baso % (Auto) 0.4 % (0.2-1.0) 03/16/18 04:34 Neut # (Auto) 5.5 x10^3/uL (2.2-4.8) H 03/16/18 04:34 Lymph # (Auto) 0.8 X10^3/uL (1.3-2.9) L 03/16/18 04:34 [place] # (Auto) 0.5 x10^3/uL (0.3-0.8) 03/16/18 04:34 Eos # (Auto) 0.1 x10^3/uL (0.0-0.2) 03/16/18 04:34 Baso # (Auto) 0.0 X10^3/uL (0.0-0.1) 03/16/18 04:34 Absolute Nucleated RBC 0.0 /100WBC 03/16/18 04:34 Plt Morphology Comment Normal (NORMAL) 03/16/18 04:34 RBC Morphology Abnormal (NORMAL) 03/16/18 04:34 Hypochromasia 1+ A 03/16/18 04:34 Anisocytosis 1+ A 03/16/18 04:34 Microcytosis Slight A 03/16/18 04:34 Sodium 136 mmol/L (136-145) 03/16/18 04:34 Corrected Sodium TNP 03/16/18 04:34 Potassium 3.3 mmol/L (3.5-5.1) L 03/16/18 04:34 Chloride 103 mmol/L (98-107) 03/16/18 04:34 Carbon Dioxide 25.1 mmol/L (21-32) 03/16/18 04:34 BUN 6 mg/dL (7-18) L 03/16/18 04:34 Creatinine 0.79 mg/dL (0.70-1.30) 03/16/18 04:34 Est GFR (MDRD) Af Amer > 60 (>60) 03/16/18 04:34 Est GFR (MDRD) Non-Af > 60 (>60) 03/16/18 04:34 Glucose 96 mg/dL (65-99) 03/16/18 04:34 Calcium 7.9 mg/dL (8.5-10.1) L 03/16/18 04:34 Corrected Calcium 9.5 mg/dL (8.5-10.1) 03/16/18 04:34 Total Bilirubin 0.70 mg/dL (0.2-1.0) 03/16/18 04:34 AST 19 Units/L (15-37) 03/16/18 04:34 ALT 17 Units/L (12-78) 03/16/18 04:34 Alkaline Phosphatase 54 Units/L (46-116) 03/16/18 04:34 Total Protein 5.6 g/dL (6.4-8.2) L 03/16/18 04:34 Albumin 2.0 g/dL (3.4-5.0) L 03/16/18 04:34 Globulin 3.6 g/dL (2.5-4.5) 03/16/18 04:34 Albumin/Globulin Ratio 0.6 Ratio (1.1-2.1) L 03/16/18 04:34 Total PSA 1.99 ng/mL (0.13-4.0) 03/14/18 16:58 Specimen Type Catherized urine 03/13/18 05:53 Urine Color Yellow (YELLOW) 03/13/18 05:53 Urine Appearance Clear (CLEAR) 03/13/18 05:53 Urine pH 6.0 (5.0 - 8.0) 03/13/18 05:53 Ur Specific [place] 1.010 (1.000-1.030) 03/13/18 05:53 Urine Protein Negative (NEGATIVE) 03/13/18 05:53 Urine Glucose (UA) Negative (NEGATIVE) 03/13/18 05:53 Urine Ketones Negative (NEGATIVE) 03/13/18 05:53 Urine Occult Blood 2+ (NEGATIVE) 03/13/18 05:53 Urine Nitrite Negative (NEGATIVE) 03/13/18 05:53 Urine Bilirubin Negative (NEGATIVE) 03/13/18 05:53 Urine Urobilinogen Normal (NORMAL) 03/13/18 05:53 Ur Leukocyte Esterase Negative (NEGATIVE) 03/13/18 05:53 Urine RBC 3-5 /HPF (NONE SEEN) 03/13/18 05:53 Urine WBC None seen /HPF (NONE SEEN) 03/13/18 05:53 Ur Squamous Epith Cells Rare /HPF (NEGATIVE) 03/13/18 05:53 Urine Bacteria Negative /HPF (NEGATIVE) 03/13/18 05:53 Urine Mucus Many /HPF (NEGATIVE) 03/11/18 11:02 Ur Culture Indicated? No/not indicated 03/13/18 05:53 Surg PTH Frozen Section Cancelled 03/11/18 13:16 Tissue Pathology To follow 03/11/18 13:16 Blood Type B POSITIVE 03/11/18 11:09 Antibody Screen Negative 03/11/18 11:09 Crossmatch See Detail 03/11/18 11:09 - Assessment and Plan 1: transverse colon ca , s/p resection and liver Bx. post op day 5. BPH. OOB , incentive spirometer , DVT prophylaxis . repeat U/A , chest xray . maybe d/c today .
--- NOTE | 2018-03-16 09:02 | RAD ---
CHEST RADIOGRAPHS PA AND LATERAL VIEWS CLINICAL HISTORY: 72-year-old male with fever postoperatively. COMPARISON: Chest radiographs 03/08/2018. FINDINGS: The cardiopericardial silhouette is stably enlarged with continued prominence of the inter stitium and perihilar lung markings and mild flattening of the hemidiaphragms. Trace bilateral effusi ons without pneumothorax or large consolidation. Bibasilar atelectasis. Pulmonary vascularity is norm al. Imaged osseous structures are intact. Soft tissues are unremarkable. IMPRESSION: Stable cardiomegaly with findings consistent with COPD with trace bilateral effusions and bibasilar a telectasis. Correlate clinically for underlying infection. Reported By:
--- NOTE | 2018-03-16 09:04 | RAD ---
HISTORY: 72-year-old male with postoperative fever. Study: Single view of the abdomen. Comparison: Abdominal radiograph 03/11/2018. Findings: Evaluation of the abdomen demonstrates a nonobstructive bowel gas pattern with gas and stool througho ut the colon. No radiographic evidence of free intraperitoneal air. Vertical midline skin viv wit h surgical viv left upper quadrant. No pathological soft tissue mass or calcification can be obs erved. The bony structures are grossly intact. IMPRESSION: 1. Nonobstructive bowel gas pattern with no acute abdominal abnormality on screening radiograph. Reported By:
[2018-03-16 09:45] LABS: BILIRUBIN,URINE NEGATIVE (NEGATIVE); BLOOD/HEMOGLOBIN,URINE NEGATIVE (NEGATIVE); GLUCOSE, URINE NEGATIVE (NEGATIVE); KETONES,URINE 1+ (NEGATIVE); LEUKOCYTE ESTERASE ,URINE NEGATIVE (NEGATIVE); NITRITES,URINE NEGATIVE (NEGATIVE); PH,URINE 6.5 (5.0 - 8.0); PROTEIN,URINE NEGATIVE (NEGATIVE); UROBILINOGEN,URINE NORMAL (NORMAL)
[2018-03-16 09:56] LABS: APPEARANCE,URINE CLEAR (CLEAR); COLOR,URINE YELLOW (YELLOW)
[2018-03-16] MEDS: NORCO 5/325 MG TAB PO PRN (11:45)
[2018-03-16 12:19] VITALS: BP 130/71
== END 2018-03-16 14:15 | disposition home health service (06) | DRG 330 ==
LOC: MED/SURG 09:47
PROVIDERS: ADMIT Surgery; ATTEND Surgery
PROC: HEMICOL (2018-03-11 09:45)
DX: R33.8 Other retention of urine; N40.1 Benign prostatic hyperplasia with lower urinary tract symptoms; C78.7 Secondary malignant neoplasm of liver and intrahepatic bile duct; C18.4 Malignant neoplasm of transverse colon; J44.9 Chronic obstructive pulmonary disease, unspecified; I10 Essential (primary) hypertension; K56.690 Other partial intestinal obstruction; D64.89 Other specified anemias; J90 Pleural effusion, not elsewhere classified; R26.89 Other abnormalities of gait and mobility
CPT/HCPCS: 36415; 36430; 71020; 71046; 74000; 74018; 80053; 81001; 81003; 84153; 85014; 85018; 85025; 86850; 86900; 86901; 86922; 87040; 88307; 88309; 94760; 97110; 97162; 97530; 97535; 99100; A4216; A4222; C9113; P9016; J0330; J0690; J1170; J1650; J1956; J2250; J2405; J2550; J2704; J2710; J3010; J3490; J7030; J7050; J7120; S5010

== ENCOUNTER 2018-03-29 12:08 | Inpatient (IN) ==
[2018-03-29] MEDS ORDERED: PERCOCET TAB 5/325 MG PO PRN (12:49)
[2018-03-29] MEDS ORDERED: ROCEPHIN 1 GRAM IV PREMIX 1 G/50 ML IV.SOLN. IV SCH (13:00)
[2018-03-29 13:18] LABS: BASOPHILS # (AUTO) 0.1 X10^3/uL (0.0-0.1); BASOPHILS % (AUTO) 1.2 % (0.2-1.0); EOSINOPHILS # (AUTO) 0.1 x10^3/uL (0.0-0.2); EOSINOPHILS % (AUTO) 1.6 % (0.9-2.9); HEMATOCRIT 35.9 % (42.0-54.0); HEMOGLOBIN 11.7 g/dL (13.5-18.0); LYMPHOCYTES # (AUTO) 0.9 X10^3/uL (1.3-2.9); LYMPHOCYTES % (AUTO) 13.1 % (21.0-51.0); MEAN CORPUSCULAR HEMOGLOBIN 24.6 pg (27.0-34.0); MEAN CORPUSCULAR HGB CONC 32.4 g/dL (33.0-35.0); MEAN CORPUSCULAR VOLUME 76.1 fL (80.0-100.0); MEAN PLATELET VOLUME 7.4 fL (7.4-11.0); MONOCYTES # (AUTO) 0.4 x10^3/uL (0.3-0.8); MONOCYTES % (AUTO) 5.5 % (0.0-13.0); NEUTROPHILS # (AUTO) 5.3 x10^3/uL (2.2-4.8); NEUTROPHILS % (AUTO) 78.6 % (42.0-75.0); PLATELET COUNT 384 X10^3/uL (150.0-450.0); RED BLOOD COUNT 4.73 X10^6/uL (4.7-6.0); RED CELL DISTRIBUTION WIDTH 21.8 % (11.6-16.5); WHITE BLOOD COUNT 6.7 X10^3/uL (3.6-10.0)
[2018-03-29 13:28] LABS: ALANINE AMINOTRANSFERASE 15 Units/L (12-78); ALBUMIN 3.2 g/dL (3.4-5.0); ALKALINE PHOSPHATASE 83 Units/L (46-116); ASPARTATE AMINO TRANSFERASE 15 Units/L (15-37); BLOOD UREA NITROGEN 15 mg/dL (7-18); CALCIUM 9.3 mg/dL (8.5-10.1); CARBON DIOXIDE 25.4 mmol/L (21-32); CHLORIDE 102 mmol/L (98-107); COR CA(FOR HYPOALB) 9.9 mg/dL (8.5-10.1); CREATININE 1.33 mg/dL (0.70-1.30); SODIUM 138 mmol/L (136-145); TOTAL PROTEIN 7.9 g/dL (6.4-8.2); eGFR NON BLACK RACES 56 (>60)
[2018-03-29 13:35] LABS: PLATELET MORPHOLOGY COMMENT NORMAL (NORMAL)
[2018-03-29 13:36] LABS: ANISOCYTOSIS 1+; MICROCYTOSIS SLIGHT
[2018-03-29] MEDS: D5 1/2 NS 1000 ML 1,000 ML IV SCH ×2 (13:50→21:19)
[2018-03-29 13:51] VITALS: BMI 23.5
[2018-03-29] MEDS: LOVENOX INJ 40 MG SYR SC SCH (13:51)
[2018-03-29] MEDS: ROCEPHIN VIAL 1 GRAM 1 G in NS 100 ML IV + SPIKE MINIBAG* 100 ML IV SCH ×2 (13:51→21:20)
[2018-03-30 05:29] LABS: BASOPHILS # (AUTO) 0.1 X10^3/uL (0.0-0.1); BASOPHILS % (AUTO) 1.2 % (0.2-1.0); EOSINOPHILS # (AUTO) 0.2 x10^3/uL (0.0-0.2); EOSINOPHILS % (AUTO) 4.8 % (0.9-2.9); HEMATOCRIT 30.7 % (42.0-54.0); HEMOGLOBIN 10.1 g/dL (13.5-18.0); LYMPHOCYTES # (AUTO) 1.1 X10^3/uL (1.3-2.9); LYMPHOCYTES % (AUTO) 21.8 % (21.0-51.0); MEAN CORPUSCULAR HEMOGLOBIN 24.5 pg (27.0-34.0); MEAN CORPUSCULAR HGB CONC 32.8 g/dL (33.0-35.0); MEAN CORPUSCULAR VOLUME 74.8 fL (80.0-100.0); MEAN PLATELET VOLUME 7.4 fL (7.4-11.0); MONOCYTES # (AUTO) 0.4 x10^3/uL (0.3-0.8); MONOCYTES % (AUTO) 7.9 % (0.0-13.0); NEUTROPHILS # (AUTO) 3.3 x10^3/uL (2.2-4.8); NEUTROPHILS % (AUTO) 64.3 % (42.0-75.0); PLATELET COUNT 333 X10^3/uL (150.0-450.0); RED BLOOD COUNT 4.11 X10^6/uL (4.7-6.0); RED CELL DISTRIBUTION WIDTH 21.3 % (11.6-16.5); WHITE BLOOD COUNT 5.2 X10^3/uL (3.6-10.0)
[2018-03-30 05:35] LABS: ALANINE AMINOTRANSFERASE 11 Units/L (12-78); ALBUMIN 2.6 g/dL (3.4-5.0); ALKALINE PHOSPHATASE 67 Units/L (46-116); ASPARTATE AMINO TRANSFERASE 15 Units/L (15-37); BLOOD UREA NITROGEN 10 mg/dL (7-18); CALCIUM 8.6 mg/dL (8.5-10.1); CARBON DIOXIDE 24.4 mmol/L (21-32); CHLORIDE 103 mmol/L (98-107); COR CA(FOR HYPOALB) 9.7 mg/dL (8.5-10.1); CREATININE 1.08 mg/dL (0.70-1.30); SODIUM 137 mmol/L (136-145); TOTAL PROTEIN 6.7 g/dL (6.4-8.2); eGFR NON BLACK RACES > 60 (>60)
[2018-03-30 05:52] LABS: ANISOCYTOSIS 1+; HYPOCHROMASIA SLIGHT; MICROCYTOSIS SLIGHT; PLATELET MORPHOLOGY COMMENT NORMAL (NORMAL)
[2018-03-30] MEDS: D5 1/2 NS 1000 ML 1,000 ML IV SCH (06:19)
[2018-03-30] MEDS: ROCEPHIN VIAL 1 GRAM 1 G in NS 100 ML IV + SPIKE MINIBAG* 100 ML IV SCH ×2 (08:28→21:40)
[2018-03-30] MEDS: LOVENOX INJ 40 MG SYR SC SCH (08:28)
[2018-03-30] MEDS: LR 1000 ML IV 1,000 ML IV SCH ×3 (10:33→18:34)
[2018-03-30] MEDS: TOPROL XL PO SCH (10:33)
--- NOTE | 2018-03-30 18:37 | DR.PROGNOT ---
Hospital Progress Notes - Progress Note for Day of: Progress Note Date: 03/30/18 - Chief Complaint Chief Complaint: feeling much better today , no SOB , no dizziness . still having drainage from the lower end of the incision.. afebrile . tolerating diet well . - Past Medical Family Social History Past Med/Fam/Surg Hx: No changes since H&P Allergies: Allergies No Known Allergies Allergy (Verified 03/11/18 14:06) - Review Of Systems ROS: No change since H&P - Vital Signs Vital Signs: Temperature 98.1 F Pulse Rate [Right Brachial] 64 Pulse Rate [Left Radial] 79 Pulse Rate [Left Brachial] 145 Respiratory Rate 20 Blood Pressure [Left Arm] 118/64 Blood Pressure [Right Arm] 115/66 Blood Pressure 130/71 O2 Sat by Pulse Oximetry 94 - Physical Exam Oriented: Normal Eyes: Normal Ear: Normal Nose: Normal Throat: Normal Cardiovascular: Tachycardia GI:Auscultation: Decreased GI:Palpation: Normal GI: Tenderness: Periumbilical (soft abdomen . flat , bs+ .. no skin abscess ..purulent drainage from the lower incision ) Speech Pattern: Clear, Appropriate - Laboratory and Diagnostics Result Diagrams: 03/30/18 04:45 03/30/18 04:45 Labs: 03/29/18 13:03 Abdomen Gram Stain - Final 03/29/18 13:03 Abdomen Wound Culture - Preliminary Laboratory WBC 5.2 X10^3/uL (3.6-10.0) 03/30/18 04:45 RBC 4.11 X10^6/uL (4.7-6.0) L 03/30/18 04:45 Hgb 10.1 g/dL (13.5-18.0) L 03/30/18 04:45 Hct 30.7 % (42.0-54.0) L 03/30/18 04:45 MCV 74.8 fL (80.0-100.0) L 03/30/18 04:45 MCH 24.5 pg (27.0-34.0) L 03/30/18 04:45 MCHC 32.8 g/dL (33.0-35.0) L 03/30/18 04:45 RDW 21.3 % (11.6-16.5) H 03/30/18 04:45 Plt Count 333 X10^3/uL (150.0-450.0) 03/30/18 04:45 Plt Count Comment Adequate (ADEQUATE) 03/30/18 04:45 MPV 7.4 fL (7.4-11.0) 03/30/18 04:45 Neut % (Auto) 64.3 % (42.0-75.0) 03/30/18 04:45 Lymph % (Auto) 21.8 % (21.0-51.0) 03/30/18 04:45 [place] % (Auto) 7.9 % (0.0-13.0) 03/30/18 04:45 Eos % (Auto) 4.8 % (0.9-2.9) H 03/30/18 04:45 Baso % (Auto) 1.2 % (0.2-1.0) H 03/30/18 04:45 Neut # (Auto) 3.3 x10^3/uL (2.2-4.8) 03/30/18 04:45 Lymph # (Auto) 1.1 X10^3/uL (1.3-2.9) L 03/30/18 04:45 [place] # (Auto) 0.4 x10^3/uL (0.3-0.8) 03/30/18 04:45 Eos # (Auto) 0.2 x10^3/uL (0.0-0.2) 03/30/18 04:45 Baso # (Auto) 0.1 X10^3/uL (0.0-0.1) 03/30/18 04:45 Absolute Nucleated RBC 0.2 /100WBC 03/30/18 04:45 Plt Morphology Comment Normal (NORMAL) 03/30/18 04:45 RBC Morphology Abnormal (NORMAL) 03/30/18 04:45 Hypochromasia Slight A 03/30/18 04:45 Anisocytosis 1+ A 03/30/18 04:45 Microcytosis Slight A 03/30/18 04:45 Sodium 137 mmol/L (136-145) 03/30/18 04:45 Corrected Sodium TNP 03/30/18 04:45 Potassium 4.3 mmol/L (3.5-5.1) 03/30/18 04:45 Chloride 103 mmol/L (98-107) 03/30/18 04:45 Carbon Dioxide 24.4 mmol/L (21-32) 03/30/18 04:45 BUN 10 mg/dL (7-18) 03/30/18 04:45 Creatinine 1.08 mg/dL (0.70-1.30) 03/30/18 04:45 Est GFR (MDRD) Af Amer > 60 (>60) 03/30/18 04:45 Est GFR (MDRD) Non-Af > 60 (>60) 03/30/18 04:45 Glucose 107 mg/dL (65-99) H 03/30/18 04:45 Calcium 8.6 mg/dL (8.5-10.1) 03/30/18 04:45 Corrected Calcium 9.7 mg/dL (8.5-10.1) 03/30/18 04:45 Total Bilirubin 0.20 mg/dL (0.2-1.0) 03/30/18 04:45 AST 15 Units/L (15-37) 03/30/18 04:45 ALT 11 Units/L (12-78) L 03/30/18 04:45 Alkaline Phosphatase 67 Units/L (46-116) 03/30/18 04:45 Troponin I < 0.02 ng/mL (0-1.5) 03/29/18 12:59 Total Protein 6.7 g/dL (6.4-8.2) 03/30/18 04:45 Albumin 2.6 g/dL (3.4-5.0) L 03/30/18 04:45 Globulin 4.1 g/dL (2.5-4.5) 03/30/18 04:45 Albumin/Globulin Ratio 0.6 Ratio (1.1-2.1) L 03/30/18 04:45 - Assessment and Plan 1: SOB and weakness is corrected . surgical infection , r/o fistula . colon ca with liver mets . mild anemia . same IV ATB. colostomy bag around the opening .
[2018-03-31] MEDS: LR 1000 ML IV 1,000 ML IV SCH ×2 (01:52→12:36)
[2018-03-31 05:27] LABS: BASOPHILS # (AUTO) 0.1 X10^3/uL (0.0-0.1); BASOPHILS % (AUTO) 1.1 % (0.2-1.0); EOSINOPHILS # (AUTO) 0.2 x10^3/uL (0.0-0.2); EOSINOPHILS % (AUTO) 3.8 % (0.9-2.9); HEMATOCRIT 33.2 % (42.0-54.0); LYMPHOCYTES # (AUTO) 1.2 X10^3/uL (1.3-2.9); LYMPHOCYTES % (AUTO) 19.6 % (21.0-51.0); MEAN CORPUSCULAR HEMOGLOBIN 24.7 pg (27.0-34.0); MEAN CORPUSCULAR HGB CONC 33.1 g/dL (33.0-35.0); MEAN CORPUSCULAR VOLUME 74.5 fL (80.0-100.0); MEAN PLATELET VOLUME 7.2 fL (7.4-11.0); MONOCYTES # (AUTO) 0.5 x10^3/uL (0.3-0.8); MONOCYTES % (AUTO) 7.4 % (0.0-13.0); NEUTROPHILS # (AUTO) 4.3 x10^3/uL (2.2-4.8); NEUTROPHILS % (AUTO) 68.1 % (42.0-75.0); PLATELET COUNT 354 X10^3/uL (150.0-450.0); RED BLOOD COUNT 4.45 X10^6/uL (4.7-6.0); RED CELL DISTRIBUTION WIDTH 21.6 % (11.6-16.5); WHITE BLOOD COUNT 6.2 X10^3/uL (3.6-10.0)
[2018-03-31 05:41] LABS: ALANINE AMINOTRANSFERASE 12 Units/L (12-78); ALBUMIN 2.7 g/dL (3.4-5.0); ALKALINE PHOSPHATASE 78 Units/L (46-116); ASPARTATE AMINO TRANSFERASE 14 Units/L (15-37); BLOOD UREA NITROGEN 9 mg/dL (7-18); CALCIUM 8.8 mg/dL (8.5-10.1); CARBON DIOXIDE 25.7 mmol/L (21-32); CHLORIDE 104 mmol/L (98-107); COR CA(FOR HYPOALB) 9.8 mg/dL (8.5-10.1); SODIUM 138 mmol/L (136-145); TOTAL PROTEIN 6.7 g/dL (6.4-8.2); eGFR NON BLACK RACES > 60 (>60)
[2018-03-31 05:51] LABS: ANISOCYTOSIS 1+; HYPOCHROMASIA SLIGHT; PLATELET MORPHOLOGY COMMENT NORMAL (NORMAL)
[2018-03-31] MEDS: LOVENOX INJ 40 MG SYR SC SCH (08:57)
[2018-03-31] MEDS: TOPROL XL PO SCH (08:57)
[2018-03-31] MEDS: ROCEPHIN VIAL 1 GRAM 1 G in NS 100 ML IV + SPIKE MINIBAG* 100 ML IV SCH (08:57)
[2018-03-31 12:36] VITALS: BP 116/65
== END 2018-03-31 13:00 | disposition home or self-care (01) | DRG 309 ==
LOC: MED/SURG 12:08
PROVIDERS: ADMIT Obstetrics & Gynecology Obstetrics; ATTEND Obstetrics & Gynecology Obstetrics
DX: R53.83 Other fatigue; C78.7 Secondary malignant neoplasm of liver and intrahepatic bile duct; Z93.3 Colostomy status; Z90.49 Acquired absence of other specified parts of digestive tract; T81.4XXA Infection following a procedure, initial encounter; R00.0 Tachycardia, unspecified; C18.4 Malignant neoplasm of transverse colon; R55 Syncope and collapse; L03.311 Cellulitis of abdominal wall; D64.89 Other specified anemias
CPT/HCPCS: 36415; 80053; 84484; 85025; 87070; 87075; 87186; 87205; 93005; 93010; A4222; J0696; J1650; J7050; J7120; S5010

== ENCOUNTER 2018-04-08 15:01 | Observation (INO) ==
--- NOTE | 2018-04-08 15:19 | DR.PROGNOT ---
Hospital Progress Notes - Progress Note for Day of: Progress Note Date: 04/08/18 - Chief Complaint Chief Complaint: open wounds in the epigastric area and around the umbilicus . s/p colon resection and liver Bx for colon ca with liver mets . still having moderate drainage in the colostomy bag . no abdominal pain . no nausea or vomiting . having moderate constipation .. no SOB or chest pain .. - Past Medical Family Social History Past Med/Fam/Surg Hx: No changes since H&P Allergies: Allergies No Known Allergies Allergy (Verified 03/11/18 14:06) - Review Of Systems ROS: No change since H&P - Vital Signs Vital Signs: Blood Pressure [Left Arm] 116/65 Blood Pressure [Right Arm] 115/66 Blood Pressure 116/65 - Physical Exam Oriented: Normal Eyes: Normal Ear: Normal Nose: Normal Throat: Normal Cardiovascular: Normal : Normal GI:Auscultation: Normal GI:Palpation: Normal GI: Tenderness: Normal Skin: Other (4 cm open wound in the epigastrium and another open wound 1 x 1 cm just above the umbilicus .. no cellulitis or abscess formation ) - Assessment and Plan 1: surgical site infection . colon ca with liver mets . s/p colectomy , liver bx. recent h/o tachycardia controlled with Metoprolol .. started IV ATB and local care
[2018-04-08] MEDS ORDERED: ANTIVERT TAB 25 MG PO PRN (15:40)
[2018-04-08] MEDS ORDERED: NORCO 10/325 TAB PO PRN (15:40)
[2018-04-08] MEDS ORDERED: NS 250 ML IV 250 ML IV ONE (15:43)
[2018-04-08] MEDS ORDERED: NS 100 ML IV + SPIKE MINIBAG* 100 ML IV ONE ×2 (15:44→21:01)
[2018-04-08] MEDS ORDERED: PHARMACY CONSULT - VANCOMYCIN XX SCH (16:00)
[2018-04-08] MEDS: ROCEPHIN VIAL 1 GRAM IVP SCH ×2 (16:06→22:04)
[2018-04-08] MEDS: VANCOMYCIN HCL 1 GM VIAL 1 G in D5W 250 ML IV 250 ML IV SCH (16:07)
[2018-04-08] MEDS: PROTONIX INJ 40 MG VIAL IVP SCH (16:07)
[2018-04-08] MEDS: LOVENOX INJ 40 MG SYR SC SCH (16:07)
[2018-04-08 16:34] LABS: BASOPHILS % (AUTO) 0.2 % (0.2-1.0); EOSINOPHILS # (AUTO) 0.3 x10^3/uL (0.0-0.2); EOSINOPHILS % (AUTO) 5.7 % (0.9-2.9); HEMATOCRIT 33.8 % (42.0-54.0); HEMOGLOBIN 11.1 g/dL (13.5-18.0); LYMPHOCYTES # (AUTO) 1.3 X10^3/uL (1.3-2.9); LYMPHOCYTES % (AUTO) 24.6 % (21.0-51.0); MEAN CORPUSCULAR HEMOGLOBIN 25.2 pg (27.0-34.0); MEAN CORPUSCULAR HGB CONC 32.8 g/dL (33.0-35.0); MEAN CORPUSCULAR VOLUME 76.8 fL (80.0-100.0); MEAN PLATELET VOLUME 7.8 fL (7.4-11.0); MONOCYTES # (AUTO) 0.4 x10^3/uL (0.3-0.8); MONOCYTES % (AUTO) 7.7 % (0.0-13.0); NEUTROPHILS # (AUTO) 3.2 x10^3/uL (2.2-4.8); NEUTROPHILS % (AUTO) 61.8 % (42.0-75.0); PLATELET COUNT 191 X10^3/uL (150.0-450.0); RED BLOOD COUNT 4.41 X10^6/uL (4.7-6.0); RED CELL DISTRIBUTION WIDTH 22.8 % (11.6-16.5); WHITE BLOOD COUNT 5.3 X10^3/uL (3.6-10.0)
[2018-04-08 16:42] VITALS: BMI 22.1
[2018-04-08 16:44] LABS: ALANINE AMINOTRANSFERASE 16 Units/L (12-78); ALBUMIN 3.4 g/dL (3.4-5.0); ALKALINE PHOSPHATASE 92 Units/L (46-116); ASPARTATE AMINO TRANSFERASE 17 Units/L (15-37); BLOOD UREA NITROGEN 15 mg/dL (7-18); CARBON DIOXIDE 24.7 mmol/L (21-32); CHLORIDE 102 mmol/L (98-107); PLATELET MORPHOLOGY COMMENT NORMAL (NORMAL); SODIUM 136 mmol/L (136-145); TOTAL PROTEIN 7.1 g/dL (6.4-8.2); eGFR NON BLACK RACES 58 (>60)
[2018-04-08 16:46] LABS: ANISOCYTOSIS 2+; HYPOCHROMASIA SLIGHT; MICROCYTOSIS SLIGHT
[2018-04-08] MEDS: RIFADIN CAP 300 MG PO SCH (22:03)
[2018-04-09 05:45] LABS: BASOPHILS % (AUTO) 0.9 % (0.2-1.0); EOSINOPHILS # (AUTO) 0.3 x10^3/uL (0.0-0.2); EOSINOPHILS % (AUTO) 6.6 % (0.9-2.9); HEMATOCRIT 33.4 % (42.0-54.0); HEMOGLOBIN 10.9 g/dL (13.5-18.0); LYMPHOCYTES # (AUTO) 1.2 X10^3/uL (1.3-2.9); MEAN CORPUSCULAR HEMOGLOBIN 25.4 pg (27.0-34.0); MEAN CORPUSCULAR HGB CONC 32.8 g/dL (33.0-35.0); MEAN CORPUSCULAR VOLUME 77.4 fL (80.0-100.0); MEAN PLATELET VOLUME 8.2 fL (7.4-11.0); MONOCYTES # (AUTO) 0.4 x10^3/uL (0.3-0.8); MONOCYTES % (AUTO) 7.6 % (0.0-13.0); NEUTROPHILS # (AUTO) 2.9 x10^3/uL (2.2-4.8); NEUTROPHILS % (AUTO) 60.9 % (42.0-75.0); PLATELET COUNT 190 X10^3/uL (150.0-450.0); RED BLOOD COUNT 4.31 X10^6/uL (4.7-6.0); RED CELL DISTRIBUTION WIDTH 22.9 % (11.6-16.5); WHITE BLOOD COUNT 4.8 X10^3/uL (3.6-10.0)
[2018-04-09 06:00] LABS: ALANINE AMINOTRANSFERASE 16 Units/L (12-78); ALBUMIN 3.2 g/dL (3.4-5.0); ALKALINE PHOSPHATASE 99 Units/L (46-116); ASPARTATE AMINO TRANSFERASE 17 Units/L (15-37); BLOOD UREA NITROGEN 13 mg/dL (7-18); CALCIUM 8.8 mg/dL (8.5-10.1); CARBON DIOXIDE 25.3 mmol/L (21-32); CHLORIDE 103 mmol/L (98-107); COR CA(FOR HYPOALB) 9.4 mg/dL (8.5-10.1); COR NA(FOR HYPERGLY) 138 mmol/L (136-145); CREATININE 1.31 mg/dL (0.70-1.30); SODIUM 137 mmol/L (136-145); TOTAL PROTEIN 6.9 g/dL (6.4-8.2); eGFR NON BLACK RACES 57 (>60)
[2018-04-09 06:27] LABS: ANISOCYTOSIS 2+; PLATELET MORPHOLOGY COMMENT NORMAL (NORMAL)
[2018-04-09 06:28] LABS: HYPOCHROMASIA SLIGHT
[2018-04-09] MEDS ORDERED: NS 100 ML IV + SPIKE MINIBAG* 100 ML IV ONE ×2 (07:48→20:56)
[2018-04-09] MEDS: PROTONIX INJ 40 MG VIAL IVP SCH (08:14)
[2018-04-09] MEDS: RIFADIN CAP 300 MG PO SCH ×2 (08:14→21:13)
[2018-04-09] MEDS: ROCEPHIN VIAL 1 GRAM IVP SCH ×2 (08:15→21:14)
[2018-04-09] MEDS ORDERED: NS 500 ML IV 500 ML IV ONE (08:20)
[2018-04-09] MEDS: LOVENOX INJ 40 MG SYR SC SCH (08:28)
[2018-04-09] MEDS ORDERED: TOPROL XL PO SCH (09:00)
[2018-04-09] MEDS: TOPROL XL PO SCH (09:37)
--- NOTE | 2018-04-09 09:42 | DR.PROGNOT ---
Hospital Progress Notes - Progress Note for Day of: Progress Note Date: 04/09/18 - Chief Complaint Chief Complaint: moderate drainage in the colostomy bag . no abdominal pain , no nausea or vomiting .. no BM yet ,. s/p colon resection and liver Bx for colon ca with liver mets . still having moderate drainage in the colostomy bag . mild anemia . - Past Medical Family Social History Past Med/Fam/Surg Hx: No changes since H&P Allergies: Allergies No Known Allergies Allergy (Verified 03/11/18 14:06) - Review Of Systems ROS: No change since H&P - Vital Signs Vital Signs: Temperature 97.7 F Pulse Rate [Left Radial] 57 Respiratory Rate 20 Blood Pressure [Left Arm] 109/56 Blood Pressure [Right Arm] 115/66 Blood Pressure 116/65 O2 Sat by Pulse Oximetry 96 - Physical Exam Oriented: Normal Eyes: Normal Ear: Normal Nose: Normal Throat: Normal Cardiovascular: Normal : Normal GI:Auscultation: Normal GI:Palpation: Normal GI: Tenderness: Normal Skin: Other (4 cm open wound in the epigastrium and another open wound 1 x 1 cm just above the umbilicus .. no cellulitis or abscess formation ) Speech Pattern: Clear, Appropriate - Laboratory and Diagnostics Result Diagrams: 04/09/18 04:20 04/09/18 04:20 Labs: 04/08/18 15:36 Abdomen Gram Stain - Final 04/08/18 15:36 Abdomen Wound Culture - Preliminary Laboratory WBC 4.8 X10^3/uL (3.6-10.0) 04/09/18 04:20 RBC 4.31 X10^6/uL (4.7-6.0) L 04/09/18 04:20 Hgb 10.9 g/dL (13.5-18.0) L 04/09/18 04:20 Hct 33.4 % (42.0-54.0) L 04/09/18 04:20 MCV 77.4 fL (80.0-100.0) L 04/09/18 04:20 MCH 25.4 pg (27.0-34.0) L 04/09/18 04:20 MCHC 32.8 g/dL (33.0-35.0) L 04/09/18 04:20 RDW 22.9 % (11.6-16.5) H 04/09/18 04:20 Plt Count 190 X10^3/uL (150.0-450.0) 04/09/18 04:20 Plt Count Comment Adequate (ADEQUATE) 04/09/18 04:20 MPV 8.2 fL (7.4-11.0) 04/09/18 04:20 Neut % (Auto) 60.9 % (42.0-75.0) 04/09/18 04:20 Lymph % (Auto) 24.0 % (21.0-51.0) 04/09/18 04:20 [place] % (Auto) 7.6 % (0.0-13.0) 04/09/18 04:20 Eos % (Auto) 6.6 % (0.9-2.9) H 04/09/18 04:20 Baso % (Auto) 0.9 % (0.2-1.0) 04/09/18 04:20 Neut # (Auto) 2.9 x10^3/uL (2.2-4.8) 04/09/18 04:20 Lymph # (Auto) 1.2 X10^3/uL (1.3-2.9) L 04/09/18 04:20 [place] # (Auto) 0.4 x10^3/uL (0.3-0.8) 04/09/18 04:20 Eos # (Auto) 0.3 x10^3/uL (0.0-0.2) H 04/09/18 04:20 Baso # (Auto) 0.0 X10^3/uL (0.0-0.1) 04/09/18 04:20 Absolute Nucleated RBC 0.1 /100WBC 04/09/18 04:20 Plt Morphology Comment Normal (NORMAL) 04/09/18 04:20 RBC Morphology Abnormal (NORMAL) 04/09/18 04:20 Hypochromasia Slight A 04/09/18 04:20 Anisocytosis 2+ A 04/09/18 04:20 Microcytosis Slight A 04/08/18 16:12 Sodium 137 mmol/L (136-145) 04/09/18 04:20 Corrected Sodium 138 mmol/L (136-145) 04/09/18 04:20 Potassium 4.4 mmol/L (3.5-5.1) 04/09/18 04:20 Chloride 103 mmol/L (98-107) 04/09/18 04:20 Carbon Dioxide 25.3 mmol/L (21-32) 04/09/18 04:20 BUN 13 mg/dL (7-18) 04/09/18 04:20 Creatinine 1.31 mg/dL (0.70-1.30) H 04/09/18 04:20 Est GFR (MDRD) Af Amer > 60 (>60) 04/09/18 04:20 Est GFR (MDRD) Non-Af 57 (>60) L 04/09/18 04:20 Glucose 125 mg/dL (65-99) H 04/09/18 04:20 Calcium 8.8 mg/dL (8.5-10.1) 04/09/18 04:20 Corrected Calcium 9.4 mg/dL (8.5-10.1) 04/09/18 04:20 Total Bilirubin 0.40 mg/dL (0.2-1.0) 04/09/18 04:20 AST 17 Units/L (15-37) 04/09/18 04:20 ALT 16 Units/L (12-78) 04/09/18 04:20 Alkaline Phosphatase 99 Units/L (46-116) 04/09/18 04:20 Total Protein 6.9 g/dL (6.4-8.2) 04/09/18 04:20 Albumin 3.2 g/dL (3.4-5.0) L 04/09/18 04:20 Globulin 3.7 g/dL (2.5-4.5) 04/09/18 04:20 Albumin/Globulin Ratio 0.9 Ratio (1.1-2.1) L 04/09/18 04:20 - Assessment and Plan 1: surgical site infection . colon ca with liver mets . s/p colectomy , liver bx. recent h/o tachycardia controlled with Metoprolol .. started IV ATB and local care. awaiting culture report .
[2018-04-09] MEDS: VANCOMYCIN HCL 1 GM VIAL 1 G in D5W 250 ML IV 250 ML IV SCH ×2 (09:44→21:15)
--- NOTE | 2018-04-09 10:49 | PCM.PROG ---
Progress Note - Progress Note for Day of Date of Exam: 04/09/18 - Subjective Subjective: This is a 73-year-old male with a known history of colon cancer around the splenic flexure. The patient required colon resection, omentectomy, and liver biopsy. 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 The patient was on 04/08 with anemia, shortness of breath, and tachycardia. At that time he was having moderate surgical site infection which was treated accordingly. Improved drainage from the lower incision, as well as another opening involving the upper incision. He denies any chills or fever. The patient has no nausea or vomiting. Pt is under the care of Dr. Fernandez, will continue surgeon plan of care - Past Medical Family Social History Past Med/Fam/Surg Hx: No changes since H&P Allergies: Allergies No Known Allergies Allergy (Verified 03/11/18 14:06) - Review of Systems ROS: No change since H&P - Vital Signs and I&O's Vital Signs: Temperature 98.4 F Pulse Rate [Left Radial] 75 Respiratory Rate 20 Blood Pressure [Left Arm] 91/61 Blood Pressure [Right Arm] 115/56 Blood Pressure 116/65 O2 Sat by Pulse Oximetry 97 Intake and Output: Intake & Output 04/06/18 04/07/18 04/08/18 04/09/18 11:59 11:59 11:59 11:59 Intake Total 670 / 670 Balance 670 / 670 - Physical Exam Oriented: Normal Eyes: Normal Ear: Normal Nose: Normal Throat: Normal Respiratory: Normal Cardiovascular: Normal : Normal Auscultation: Bowel Sounds: Normal Tenderness: Normal Skin: Other (4 cm open wound in the epigastrium and another open wound 1 x 1 cm just above the umbilicus .. no cellulitis or abscess formation ) Speech Pattern: Clear, Appropriate - Laboratory and Diagnostics Result Diagrams: 04/09/18 04:20 04/09/18 04:20 Labs: 04/08/18 15:36 Abdomen Gram Stain - Final 04/08/18 15:36 Abdomen Wound Culture - Preliminary Laboratory WBC 4.8 X10^3/uL (3.6-10.0) 04/09/18 04:20 RBC 4.31 X10^6/uL (4.7-6.0) L 04/09/18 04:20 Hgb 10.9 g/dL (13.5-18.0) L 04/09/18 04:20 Hct 33.4 % (42.0-54.0) L 04/09/18 04:20 MCV 77.4 fL (80.0-100.0) L 04/09/18 04:20 MCH 25.4 pg (27.0-34.0) L 04/09/18 04:20 MCHC 32.8 g/dL (33.0-35.0) L 04/09/18 04:20 RDW 22.9 % (11.6-16.5) H 04/09/18 04:20 Plt Count 190 X10^3/uL (150.0-450.0) 04/09/18 04:20 Plt Count Comment Adequate (ADEQUATE) 04/09/18 04:20 MPV 8.2 fL (7.4-11.0) 04/09/18 04:20 Neut % (Auto) 60.9 % (42.0-75.0) 04/09/18 04:20 Lymph % (Auto) 24.0 % (21.0-51.0) 04/09/18 04:20 [place] % (Auto) 7.6 % (0.0-13.0) 04/09/18 04:20 Eos % (Auto) 6.6 % (0.9-2.9) H 04/09/18 04:20 Baso % (Auto) 0.9 % (0.2-1.0) 04/09/18 04:20 Neut # (Auto) 2.9 x10^3/uL (2.2-4.8) 04/09/18 04:20 Lymph # (Auto) 1.2 X10^3/uL (1.3-2.9) L 04/09/18 04:20 [place] # (Auto) 0.4 x10^3/uL (0.3-0.8) 04/09/18 04:20 Eos # (Auto) 0.3 x10^3/uL (0.0-0.2) H 04/09/18 04:20 Baso # (Auto) 0.0 X10^3/uL (0.0-0.1) 04/09/18 04:20 Absolute Nucleated RBC 0.1 /100WBC 04/09/18 04:20 Plt Morphology Comment Normal (NORMAL) 04/09/18 04:20 RBC Morphology Abnormal (NORMAL) 04/09/18 04:20 Hypochromasia Slight A 04/09/18 04:20 Anisocytosis 2+ A 04/09/18 04:20 Microcytosis Slight A 04/08/18 16:12 Sodium 137 mmol/L (136-145) 04/09/18 04:20 Corrected Sodium 138 mmol/L (136-145) 04/09/18 04:20 Potassium 4.4 mmol/L (3.5-5.1) 04/09/18 04:20 Chloride 103 mmol/L (98-107) 04/09/18 04:20 Carbon Dioxide 25.3 mmol/L (21-32) 04/09/18 04:20 BUN 13 mg/dL (7-18) 04/09/18 04:20 Creatinine 1.31 mg/dL (0.70-1.30) H 04/09/18 04:20 Est GFR (MDRD) Af Amer > 60 (>60) 04/09/18 04:20 Est GFR (MDRD) Non-Af 57 (>60) L 04/09/18 04:20 Glucose 125 mg/dL (65-99) H 04/09/18 04:20 Calcium 8.8 mg/dL (8.5-10.1) 04/09/18 04:20 Corrected Calcium 9.4 mg/dL (8.5-10.1) 04/09/18 04:20 Iron 62 ug/dL (50-175) 04/09/18 04:20 Transferrin 212 mg/dL (202-364) 04/09/18 04:20 Ferritin 96 ng/mL (26-388) 04/09/18 04:20 Total Bilirubin 0.40 mg/dL (0.2-1.0) 04/09/18 04:20 AST 17 Units/L (15-37) 04/09/18 04:20 ALT 16 Units/L (12-78) 04/09/18 04:20 Alkaline Phosphatase 99 Units/L (46-116) 04/09/18 04:20 Total Protein 6.9 g/dL (6.4-8.2) 04/09/18 04:20 Albumin 3.2 g/dL (3.4-5.0) L 04/09/18 04:20 Globulin 3.7 g/dL (2.5-4.5) 04/09/18 04:20 Albumin/Globulin Ratio 0.9 Ratio (1.1-2.1) L 04/09/18 04:20 Vitamin B12 406 pg/mL (193-986) 04/09/18 04:20 Folate 4.4 ng/mL (>8.6) L 04/09/18 04:20 - Plan (1) Open abdominal wall wound Status: Acute Plan: CULTURES COLLECTED ON ADMISSION, ON IV ATBX. BP AND CARDIAC MONITORING. ENCOURAGE HYDRATION, COLOSTOMY CARE. WOUND CARE, AM LABS
[2018-04-10 04:10] LABS: BASOPHILS # (AUTO) 0.1 X10^3/uL (0.0-0.1); BASOPHILS % (AUTO) 1.1 % (0.2-1.0); EOSINOPHILS # (AUTO) 0.3 x10^3/uL (0.0-0.2); EOSINOPHILS % (AUTO) 6.5 % (0.9-2.9); HEMATOCRIT 33.9 % (42.0-54.0); LYMPHOCYTES # (AUTO) 1.5 X10^3/uL (1.3-2.9); LYMPHOCYTES % (AUTO) 29.7 % (21.0-51.0); MEAN CORPUSCULAR HEMOGLOBIN 25.1 pg (27.0-34.0); MEAN CORPUSCULAR HGB CONC 32.5 g/dL (33.0-35.0); MEAN CORPUSCULAR VOLUME 77.3 fL (80.0-100.0); MEAN PLATELET VOLUME 7.6 fL (7.4-11.0); MONOCYTES # (AUTO) 0.4 x10^3/uL (0.3-0.8); MONOCYTES % (AUTO) 7.8 % (0.0-13.0); NEUTROPHILS # (AUTO) 2.8 x10^3/uL (2.2-4.8); NEUTROPHILS % (AUTO) 54.9 % (42.0-75.0); PLATELET COUNT 191 X10^3/uL (150.0-450.0); RED BLOOD COUNT 4.39 X10^6/uL (4.7-6.0); RED CELL DISTRIBUTION WIDTH 23.4 % (11.6-16.5)
[2018-04-10 04:20] LABS: ALANINE AMINOTRANSFERASE 17 Units/L (12-78); ALBUMIN 3.2 g/dL (3.4-5.0); ALKALINE PHOSPHATASE 94 Units/L (46-116); ASPARTATE AMINO TRANSFERASE 17 Units/L (15-37); BLOOD UREA NITROGEN 13 mg/dL (7-18); CALCIUM 8.9 mg/dL (8.5-10.1); CARBON DIOXIDE 27.7 mmol/L (21-32); CHLORIDE 103 mmol/L (98-107); COR CA(FOR HYPOALB) 9.5 mg/dL (8.5-10.1); CREATININE 1.15 mg/dL (0.70-1.30); SODIUM 137 mmol/L (136-145); eGFR NON BLACK RACES > 60 (>60)
[2018-04-10 05:49] LABS: ANISOCYTOSIS 2+; HYPOCHROMASIA SLIGHT; PLATELET MORPHOLOGY COMMENT NORMAL (NORMAL)
[2018-04-10] MEDS: PROTONIX INJ 40 MG VIAL IVP SCH (08:10)
[2018-04-10] MEDS: RIFADIN CAP 300 MG PO SCH ×2 (08:11→21:59)
[2018-04-10] MEDS: TOPROL XL PO SCH (08:11)
[2018-04-10] MEDS: ROCEPHIN VIAL 1 GRAM IVP SCH ×2 (08:11→21:59)
[2018-04-10] MEDS: LOVENOX INJ 40 MG SYR SC SCH (08:12)
[2018-04-10] MEDS ORDERED: PHARMACY COMMENT IV NR (08:30)
[2018-04-10 08:48] LABS: CREATININE 1.16 mg/dL (0.70-1.30); VANCOMYCIN,TROUGH 11.5 ug/mL (15-20)
[2018-04-10] MEDS: VANCOMYCIN HCL 1 GM VIAL 1 G in D5W 250 ML IV 250 ML IV SCH ×2 (09:25→21:58)
[2018-04-10] MEDS ORDERED: NS 100 ML IV + SPIKE MINIBAG* 100 ML IV ONE (20:50)
--- NOTE | 2018-04-10 23:23 | DR.PROGNOT ---
Hospital Progress Notes - Progress Note for Day of: Progress Note Date: 04/10/18 - Chief Complaint Chief Complaint: moderate drainage in the colostomy bag . no abdominal pain , no nausea or vomiting .. had normal BM .. s/p colon resection and liver Bx for colon ca with liver mets . culture showed both gram _and + bacteria - Past Medical Family Social History Past Med/Fam/Surg Hx: No changes since H&P Allergies: Allergies No Known Allergies Allergy (Verified 03/11/18 14:06) - Review Of Systems ROS: No change since H&P - Vital Signs Vital Signs: Temperature 97.9 F Pulse Rate [Left Radial] 60 Respiratory Rate 20 Blood Pressure [Left Arm] 95/51 Blood Pressure [Right Arm] 100/59 Blood Pressure 116/65 O2 Sat by Pulse Oximetry 93 - Physical Exam Oriented: Normal Eyes: Normal Ear: Normal Nose: Normal Throat: Normal Respiratory: Normal Cardiovascular: Normal : Normal GI:Auscultation: Normal GI:Palpation: Normal GI: Tenderness: Normal Skin: Other (4 cm open wound in the epigastrium and another open wound 1 x 1 cm just above the umbilicus .. no cellulitis or abscess formation ) Speech Pattern: Clear, Appropriate - Laboratory and Diagnostics Result Diagrams: 04/10/18 04:00 04/10/18 08:20 Labs: 04/08/18 15:36 Abdomen Gram Stain - Final 04/08/18 15:36 Abdomen Wound Culture - Preliminary 04/08/18 15:45 Blood Blood Culture - Preliminary 04/08/18 15:40 Blood Blood Culture - Preliminary Laboratory WBC 5.0 X10^3/uL (3.6-10.0) 04/10/18 04:00 RBC 4.39 X10^6/uL (4.7-6.0) L 04/10/18 04:00 Hgb 11.0 g/dL (13.5-18.0) L 04/10/18 04:00 Hct 33.9 % (42.0-54.0) L 04/10/18 04:00 MCV 77.3 fL (80.0-100.0) L 04/10/18 04:00 MCH 25.1 pg (27.0-34.0) L 04/10/18 04:00 MCHC 32.5 g/dL (33.0-35.0) L 04/10/18 04:00 RDW 23.4 % (11.6-16.5) H 04/10/18 04:00 Plt Count 191 X10^3/uL (150.0-450.0) 04/10/18 04:00 Plt Count Comment Adequate (ADEQUATE) 04/10/18 04:00 MPV 7.6 fL (7.4-11.0) 04/10/18 04:00 Neut % (Auto) 54.9 % (42.0-75.0) 04/10/18 04:00 Lymph % (Auto) 29.7 % (21.0-51.0) 04/10/18 04:00 [place] % (Auto) 7.8 % (0.0-13.0) 04/10/18 04:00 Eos % (Auto) 6.5 % (0.9-2.9) H 04/10/18 04:00 Baso % (Auto) 1.1 % (0.2-1.0) H 04/10/18 04:00 Neut # (Auto) 2.8 x10^3/uL (2.2-4.8) 04/10/18 04:00 Lymph # (Auto) 1.5 X10^3/uL (1.3-2.9) 04/10/18 04:00 [place] # (Auto) 0.4 x10^3/uL (0.3-0.8) 04/10/18 04:00 Eos # (Auto) 0.3 x10^3/uL (0.0-0.2) H 04/10/18 04:00 Baso # (Auto) 0.1 X10^3/uL (0.0-0.1) 04/10/18 04:00 Absolute Nucleated RBC 0.1 /100WBC 04/10/18 04:00 Plt Morphology Comment Normal (NORMAL) 04/10/18 04:00 RBC Morphology Abnormal (NORMAL) 04/10/18 04:00 Hypochromasia Slight A 04/10/18 04:00 Anisocytosis 2+ A 04/10/18 04:00 Microcytosis Slight A 04/08/18 16:12 Sodium 137 mmol/L (136-145) 04/10/18 04:00 Corrected Sodium TNP 04/10/18 04:00 Potassium 4.5 mmol/L (3.5-5.1) 04/10/18 04:00 Chloride 103 mmol/L (98-107) 04/10/18 04:00 Carbon Dioxide 27.7 mmol/L (21-32) 04/10/18 04:00 BUN 13 mg/dL (7-18) 04/10/18 04:00 Creatinine 1.16 mg/dL (0.70-1.30) 04/10/18 08:20 Est GFR (MDRD) Af Amer > 60 (>60) 04/10/18 04:00 Est GFR (MDRD) Non-Af > 60 (>60) 04/10/18 04:00 Glucose 108 mg/dL (65-99) H 04/10/18 04:00 Calcium 8.9 mg/dL (8.5-10.1) 04/10/18 04:00 Corrected Calcium 9.5 mg/dL (8.5-10.1) 04/10/18 04:00 Iron 62 ug/dL (50-175) 04/09/18 04:20 Transferrin 212 mg/dL (202-364) 04/09/18 04:20 Ferritin 96 ng/mL (26-388) 04/09/18 04:20 Total Bilirubin 0.40 mg/dL (0.2-1.0) 04/10/18 04:00 AST 17 Units/L (15-37) 04/10/18 04:00 ALT 17 Units/L (12-78) 04/10/18 04:00 Alkaline Phosphatase 94 Units/L (46-116) 04/10/18 04:00 Total Protein 7.0 g/dL (6.4-8.2) 04/10/18 04:00 Albumin 3.2 g/dL (3.4-5.0) L 04/10/18 04:00 Globulin 3.8 g/dL (2.5-4.5) 04/10/18 04:00 Albumin/Globulin Ratio 0.8 Ratio (1.1-2.1) L 04/10/18 04:00 Vitamin B12 406 pg/mL (193-986) 04/09/18 04:20 Folate 4.4 ng/mL (>8.6) L 04/09/18 04:20 Vancomycin Trough 11.5 ug/mL (15-20) L 04/10/18 08:20 - Assessment and Plan 1: surgical site infection . colon ca with liver mets . s/p colectomy , liver bx. recent h/o tachycardia controlled with Metoprolol .. on IV ATB , local care and nutritional support , oncology f/u. d/c in am - Problem Patient Problems: Patient Problems Open abdominal wall wound (Acute) S31.109A
[2018-04-11 05:19] LABS: BASOPHILS % (AUTO) 0.9 % (0.2-1.0); EOSINOPHILS # (AUTO) 0.3 x10^3/uL (0.0-0.2); EOSINOPHILS % (AUTO) 6.3 % (0.9-2.9); HEMATOCRIT 33.8 % (42.0-54.0); HEMOGLOBIN 11.2 g/dL (13.5-18.0); LYMPHOCYTES # (AUTO) 1.6 X10^3/uL (1.3-2.9); LYMPHOCYTES % (AUTO) 28.7 % (21.0-51.0); MEAN CORPUSCULAR HEMOGLOBIN 25.5 pg (27.0-34.0); MEAN CORPUSCULAR VOLUME 77.2 fL (80.0-100.0); MEAN PLATELET VOLUME 7.9 fL (7.4-11.0); MONOCYTES # (AUTO) 0.4 x10^3/uL (0.3-0.8); NEUTROPHILS # (AUTO) 3.1 x10^3/uL (2.2-4.8); NEUTROPHILS % (AUTO) 56.1 % (42.0-75.0); PLATELET COUNT 187 X10^3/uL (150.0-450.0); RED BLOOD COUNT 4.37 X10^6/uL (4.7-6.0); RED CELL DISTRIBUTION WIDTH 22.6 % (11.6-16.5); WHITE BLOOD COUNT 5.5 X10^3/uL (3.6-10.0)
[2018-04-11 05:37] LABS: ALANINE AMINOTRANSFERASE 16 Units/L (12-78); ALBUMIN 3.3 g/dL (3.4-5.0); ALKALINE PHOSPHATASE 88 Units/L (46-116); ASPARTATE AMINO TRANSFERASE 18 Units/L (15-37); BLOOD UREA NITROGEN 13 mg/dL (7-18); CARBON DIOXIDE 25.5 mmol/L (21-32); CHLORIDE 102 mmol/L (98-107); COR CA(FOR HYPOALB) 9.6 mg/dL (8.5-10.1); CREATININE 1.06 mg/dL (0.70-1.30); SODIUM 137 mmol/L (136-145); TOTAL PROTEIN 7.1 g/dL (6.4-8.2); eGFR NON BLACK RACES > 60 (>60)
[2018-04-11 05:55] LABS: ANISOCYTOSIS 2+; HYPOCHROMASIA SLIGHT; PLATELET MORPHOLOGY COMMENT NORMAL (NORMAL)
[2018-04-11] MEDS: ROCEPHIN VIAL 1 GRAM IVP SCH (08:59)
[2018-04-11] MEDS: RIFADIN CAP 300 MG PO SCH (08:59)
[2018-04-11] MEDS: VANCOMYCIN HCL 1 GM VIAL 1 G in D5W 250 ML IV 250 ML IV SCH (08:59)
[2018-04-11] MEDS: TOPROL XL PO SCH (08:59)
[2018-04-11] MEDS: LOVENOX INJ 40 MG SYR SC SCH (08:59)
[2018-04-11] MEDS: PROTONIX INJ 40 MG VIAL IVP SCH (08:59)
[2018-04-11 12:08] VITALS: BP 90/66
== END 2018-04-11 12:10 | disposition home health service (06) ==
LOC: MED/SURG
PROVIDERS: ADMIT Surgery; ATTEND Surgery
DX: T81.4XXD Infection following a procedure, subsequent encounter; R00.0 Tachycardia, unspecified; X58.XXXD Exposure to other specified factors, subsequent encounter; D64.89 Other specified anemias; S31.105D Unspecified open wound of abdominal wall, periumbilic region without penetration into peritoneal cavity, subsequent encounter; C18.5 Malignant neoplasm of splenic flexure; C77.8 Secondary and unspecified malignant neoplasm of lymph nodes of multiple regions; Z79.899 Other long term (current) drug therapy; K59.09 Other constipation; S31.102D Unspecified open wound of abdominal wall, epigastric region without penetration into peritoneal cavity, subsequent encounter; I10 Essential (primary) hypertension; C78.7 Secondary malignant neoplasm of liver and intrahepatic bile duct
CPT/HCPCS: 36415; 80053; 80202; 82565; 82607; 82728; 82746; 83540; 84466; 85025; 87040; 87070; 87075; 87205; A4216; A4222; C9113; G0378; J0696; J1650; J3370; J7040; J7050; J7060

== ENCOUNTER 2019-09-01 13:50 | Observation (INO) ==
[2019-09-01 14:18] VITALS: BMI 23.0
--- NOTE | 2019-09-01 14:19 | DR.CP ---
HPI Time Seen Time Seen by Provider: 09/01/19 14:04 PCP Primary Care Physician: Emily principal electrical engineer Franny Irene HPI Comment HPI Comment: chest pain Complaint Chief Complaint Doctor Comments: left sided cp that began about 2 hours ago. He called principal electrical engineer and was told to take NTG, which he did. When pain didn't subside, he was told to come to ER. Had stents placed 10-11 months ago. On ASA a nd Plavix. Self Treatment fo Chief Complaint: NTG Reviewed Nurses Notes Review: Yes Source History Provided: Patient, Family Member and Significant Other Mode of Arrival Mode of Arrival: Ambulatory Duration Duration: Intermittent Location Location of Chest Pain: Left Chest Pain Radiation Location: Left Arm (tingling heaviness) Context Onset: At rest Cardiac Risk Factors: Hyperlipidemia and HTN PE Risk Factors: None History of: Aspirin in last 24 hours and Other Associated Signs and Symptoms Associated Signs and Symptoms: Other (CAD with stents) PMH PMH Past Medical History: Anemia, Dyslipidemia and GERD Past Medical History Comment: CAD, colon cancer Past Surgical History: Yes Surgical History: Abdominal Surgery, Angioplasty/Stents and Bowel Resection Past Surgical History Comment: port Family History History of Family Medical Conditions: Yes Family Medical History: Cancer and Hypertension Social History Does patient currently use any type of tobacco product: No Have you used tobacco products in the last 12 months: No Does any household member use tobacco: No Alcohol Use: None Do you use any recreational Drugs:: No Lives With: Spouse Lives Where: Home infectious screening In the last 2 months have you had wt loss of >10#?: NO Have you had fever, night sweats or hemotysis?: No Have you traveled outside the country in the last 6 months?: No Isolation: Standard ROS Review of Systems Constitutional: No Symptoms Reported; negative Chills and Fever Respiratoy: No Symptoms Reported Cardiovascular: See HPI and Chest Pain; negative Edema, Palpitations and Syncope Gastrointestinal/Abdominal: No Symptoms Reported Neurological: No Symptoms Reported Musculoskeletal: No Symptoms Reported Integumentary: Other (no diaphoresis) All Other Systems: Reviewed and Negative PE Vitals Vitals: Temperature 98.0 F Pulse Rate 62 Respiratory Rate 10 Blood Pressure [Left Arm] 132/72 Blood Pressure [Right Arm] 113/63 Blood Pressure 142/81 O2 Sat by Pulse Oximetry 98 General Limitations: No Limitations General Appearance: Alert and In No Apparent Distress Eyes Eye exam: Normal Appearance and EOMI; negative Scleral Icterus ENT ENT Exam: Mucous Membranes Moist Chest Chest Inspection: Normal Inspection and Symmetric Chest Wall Rise; negative Tenderness Respiratory Respiratory Exam: Normal Lung Sounds Bilat Cardiovascular Cardiovascular Exam: Regular Rate, Normal Rhythm and Normal Heart Sounds Pulse: Normal, Radial, Left and Right Edema: Normal Abdominal Exam Abdominal Exam: Soft; negative Distention and Tenderness Extremities Extremities Exam: Normal Inspection and Full ROM; negative Edema Neurologic Neurological Exam: Alert and Oriented X3 Psychiatric Psychiatric Exam: Normal Affect and Normal Mood Skin Skin Exam: Warm, Dry and Normal Color; negative Rash MDM Differential Diagnosis Differential Diagnosis: Angina, Chest Wall Pain, Costochondritis and Myocardial Infarction ROR Labs Reviewed Laboratory Results Reviewed?: Yes Result Diagrams: 09/01/19 14:39 09/01/19 14:39 Laboratory: WBC 2.6 X10^3/uL (3.6-10.0) L 09/01/19 14:39 RBC 3.55 X10^6/uL (4.7-6.0) L 09/01/19 14:39 Hgb 11.3 g/dL (13.5-18.0) L 09/01/19 14:39 Hct 33.5 % (42.0-54.0) L 09/01/19 14:39 MCV 94.5 fL (80.0-100.0) 09/01/19 14:39 MCH 31.9 pg (27.0-34.0) 09/01/19 14:39 MCHC 33.7 g/dL (33.0-35.0) 09/01/19 14:39 RDW 15.9 % (11.6-16.5) 09/01/19 14:39 Plt Count 106 X10^3/uL (150.0-450.0) L 09/01/19 14:39 MPV 7.5 fL (7.4-11.0) 09/01/19 14:39 Neut % (Auto) 60.3 % (42.0-75.0) 09/01/19 14:39 Lymph % (Auto) 32.7 % (21.0-51.0) 09/01/19 14:39 [place] % (Auto) 4.9 % (0.0-13.0) 09/01/19 14:39 Eos % (Auto) 1.6 % (0.9-2.9) 09/01/19 14:39 Baso % (Auto) 0.5 % (0.2-1.0) 09/01/19 14:39 Neut # (Auto) 1.5 x10^3/uL (2.2-4.8) L 09/01/19 14:39 Lymph # (Auto) 0.8 X10^3/uL (1.3-2.9) L 09/01/19 14:39 [place] # (Auto) 0.1 x10^3/uL (0.3-0.8) L 09/01/19 14:39 Eos # (Auto) 0.0 x10^3/uL (0.0-0.2) 09/01/19 14:39 Baso # (Auto) 0.0 X10^3/uL (0.0-0.1) 09/01/19 14:39 Absolute Nucleated RBC 0.1 /100WBC 09/01/19 14:39 D-Dimer 2920 ng/mL (0-400) H* 09/01/19 14:39 Sodium 138 mmol/L (136-145) 09/01/19 14:39 Corrected Sodium TNP 09/01/19 14:39 Potassium 3.9 mmol/L (3.5-5.1) 09/01/19 14:39 Chloride 105 mmol/L (98-107) 09/01/19 14:39 Carbon Dioxide 25.7 mmol/L (21-32) 09/01/19 14:39 BUN 13 mg/dL (7-18) 09/01/19 14:39 Creatinine 0.96 mg/dL (0.70-1.30) 09/01/19 14:39 Est GFR (MDRD) Af Amer > 60 (>60) 09/01/19 14:39 Est GFR (MDRD) Non-Af > 60 (>60) 09/01/19 14:39 Glucose 86 mg/dL (65-99) 09/01/19 14:39 Calcium 8.1 mg/dL (8.5-10.1) L 09/01/19 14:39 Corrected Calcium 8.7 mg/dL (8.5-10.1) 09/01/19 14:39 Magnesium 2.0 mg/dL (1.7-2.9) 09/01/19 14:39 Total Bilirubin 0.40 mg/dL (0.2-1.0) 09/01/19 14:39 AST 23 Units/L (15-37) 09/01/19 14:39 ALT 21 Units/L (12-78) 09/01/19 14:39 Alkaline Phosphatase 84 Units/L (46-116) 09/01/19 14:39 Creatine Kinase 53 Units/L (39-308) 09/01/19 14:39 CK-MB (CK-2) < 1.0 ng/mL (0-4.0) 09/01/19 14:39 CK/CKMB % Calc 1.9 % (<4) 09/01/19 14:39 Troponin I < 0.02 ng/mL (0-1.5) 09/01/19 14:39 Total Protein 6.3 g/dL (6.4-8.2) L 09/01/19 14:39 Albumin 3.2 g/dL (3.4-5.0) L 09/01/19 14:39 Globulin 3.1 g/dL (2.5-4.5) 09/01/19 14:39 Albumin/Globulin Ratio 1.0 Ratio (1.1-2.1) L 09/01/19 14:39 Other Results Comments: HISTORY CP STUDY CHEST, 1 VIEW COMPARISON One-view chest July 28, 2018 FINDINGS The trachea is midline. Left subclavian port is in place. The cardiac silhouette is unremarkable . The lungs are clear without focal infiltrate or effusion. The bony thorax is unremarkable. When compared to July 28, 2018 there is no significant interval change. Chronic changes of apical pleural scarring and parenchymal scarring in the right apex are again noted. IMPRESSION Mild chronic apical lung changes but no acute cardiopulmonary abnormalities. Electronically signed by: JUVENTINO DE LA PAZ (Sep 01, 2019 14:59:02) XRAY XRAY Interpreted by: Radiologist XRAY Findings: CXR nothing acute, no cardiomegaly EKG Rate: 59 [place]: Normal Rhythm: NSR Block: None Hypertrophy: None ST: Normal Opioid Opioid Risk Tool Total: 0 Total Score Risk Category: Low Risk Copyright: Franco LR predicting aberrant behaviors ADDITIONAL NOTES Additional Notes Additional Notes: Diagnosis: chest pain Pt has a HEART score of 4. Place in observation, covering for Dr. Diaz
[2019-09-01 14:47] LABS: BASOPHILS % (AUTO) 0.5 % (0.2-1.0); EOSINOPHILS % (AUTO) 1.6 % (0.9-2.9); HEMATOCRIT 33.5 % (42.0-54.0); HEMOGLOBIN 11.3 g/dL (13.5-18.0); LYMPHOCYTES # (AUTO) 0.8 X10^3/uL (1.3-2.9); LYMPHOCYTES % (AUTO) 32.7 % (21.0-51.0); MEAN CORPUSCULAR HEMOGLOBIN 31.9 pg (27.0-34.0); MEAN CORPUSCULAR HGB CONC 33.7 g/dL (33.0-35.0); MEAN CORPUSCULAR VOLUME 94.5 fL (80.0-100.0); MEAN PLATELET VOLUME 7.5 fL (7.4-11.0); MONOCYTES # (AUTO) 0.1 x10^3/uL (0.3-0.8); MONOCYTES % (AUTO) 4.9 % (0.0-13.0); NEUTROPHILS # (AUTO) 1.5 x10^3/uL (2.2-4.8); NEUTROPHILS % (AUTO) 60.3 % (42.0-75.0); PLATELET COUNT 106 X10^3/uL (150.0-450.0); RED BLOOD COUNT 3.55 X10^6/uL (4.7-6.0); RED CELL DISTRIBUTION WIDTH 15.9 % (11.6-16.5); WHITE BLOOD COUNT 2.6 X10^3/uL (3.6-10.0)
--- NOTE | 2019-09-01 15:00 | RAD ---
HISTORYCPSTUDYCHEST, 1 VIEWCOMPARISONOne-view chest July 28, 2018FINDINGSThe trachea is midline. Left subclavian port is in place. The cardiac silhouette is unremarkable . The lungs are clear without focal infiltrate or effusion. The bony thorax is unremarkable. When compared to July 28, 2018 there is no significant interval change. Chronic changes of apical pleural scarring and parenchymal scarring in the right apex are again noted.IMPRESSIONMild chronic apical lung changes but no acute cardiopulmonary abnormalities.Electronically signed by: JUVENTINO DE LA PAZ (Sep 01, 2019 14:59:02)
[2019-09-01 15:05] LABS: BLOOD UREA NITROGEN 13 mg/dL (7-18); CALCIUM 8.1 mg/dL (8.5-10.1); CARBON DIOXIDE 25.7 mmol/L (21-32); CHLORIDE 105 mmol/L (98-107); CREATININE 0.96 mg/dL (0.70-1.30); SODIUM 138 mmol/L (136-145); TROPONIN I < 0.02 ng/mL (0-1.5); eGFR NON BLACK RACES > 60 (>60)
[2019-09-01 15:09] LABS: ALANINE AMINOTRANSFERASE 21 Units/L (12-78); ALBUMIN 3.2 g/dL (3.4-5.0); ALKALINE PHOSPHATASE 84 Units/L (46-116); ASPARTATE AMINO TRANSFERASE 23 Units/L (15-37); CKMB % 1.9 % (<4); COR CA(FOR HYPOALB) 8.7 mg/dL (8.5-10.1); CREATINE KINASE 53 Units/L (39-308); CREATINE KINASE MB < 1.0 ng/mL (0-4.0); TOTAL PROTEIN 6.3 g/dL (6.4-8.2)
[2019-09-01] MEDS ORDERED: NS 100 ML IV 100 ML IV ONE (15:18)
[2019-09-01] MEDS ORDERED: NS 1000 ML 1,000 ML ONE (15:54)
[2019-09-01] MEDS: NS 1000 ML 1,000 ML IV SCH (16:01)
--- NOTE | 2019-09-01 16:50 | CT ---
[facility] PAINSTUDYCT[facility] CHEST W/WO CONTCOMPARISONNovember 2018TECHNIQUEMultiple axial images of the chest were obtained from the thoracic inlet to the upper abdomen with and without the administration of IV contrast. Coronal sagittal reformatted 3 dimensional MIP images were also submitted utilizing CTA protocol. Dose reduction techniques including Automated Exposure Control (AEC) and adjustment of mA and kV were utilized.FINDINGSScattered subcentimeter lymph nodes are seen within the mediastinum. There is no significant effusion observed. Images demonstrate borderline aneurysmal dilatation of the ascending thoracic aorta measuring up to approximately 4.0 centimeters in caliber. No definite focal well circumscribed filling defects are appreciated within the 1st or 2nd order branches of the pulmonary arterial system. Moderate to severe emphysematous changes are noted. Numerous pulmonary nodules are again seen throughout both lungs.IMPRESSIONNo definite CT evidence of pulmonary embolism is appreciated.Numerous bilateral pulmonary nodules are again seen throughout both lungs.Moderate to severe emphysematous changes.Electronically signed by: AYESHA WINTER (Sep 01, 2019 16:49:07)
[2019-09-01] MEDS ORDERED: LIPITOR TAB 40 MG PO SCH (21:00)
[2019-09-01 21:51] LABS: CKMB % 1.9 % (<4); CREATINE KINASE 52 Units/L (39-308); CREATINE KINASE MB < 1.0 ng/mL (0-4.0); TROPONIN I < 0.02 ng/mL (0-1.5)
[2019-09-02] MEDS: NS 1000 ML 1,000 ML IV SCH (06:07)
[2019-09-02 06:24] LABS: BASOPHILS % (AUTO) 0.6 % (0.2-1.0); EOSINOPHILS # (AUTO) 0.1 x10^3/uL (0.0-0.2); EOSINOPHILS % (AUTO) 2.3 % (0.9-2.9); HEMATOCRIT 32.5 % (42.0-54.0); HEMOGLOBIN 11.3 g/dL (13.5-18.0); LYMPHOCYTES # (AUTO) 0.6 X10^3/uL (1.3-2.9); LYMPHOCYTES % (AUTO) 28.6 % (21.0-51.0); MEAN CORPUSCULAR HEMOGLOBIN 32.3 pg (27.0-34.0); MEAN CORPUSCULAR HGB CONC 34.6 g/dL (33.0-35.0); MEAN CORPUSCULAR VOLUME 93.3 fL (80.0-100.0); MEAN PLATELET VOLUME 7.9 fL (7.4-11.0); MONOCYTES # (AUTO) 0.1 x10^3/uL (0.3-0.8); MONOCYTES % (AUTO) 4.2 % (0.0-13.0); NEUTROPHILS # (AUTO) 1.5 x10^3/uL (2.2-4.8); NEUTROPHILS % (AUTO) 64.3 % (42.0-75.0); PLATELET COUNT 104 X10^3/uL (150.0-450.0); RED BLOOD COUNT 3.49 X10^6/uL (4.7-6.0); RED CELL DISTRIBUTION WIDTH 15.7 % (11.6-16.5); WHITE BLOOD COUNT 2.3 X10^3/uL (3.6-10.0)
[2019-09-02 06:48] LABS: BLOOD UREA NITROGEN 11 mg/dL (7-18); CALCIUM 7.9 mg/dL (8.5-10.1); CARBON DIOXIDE 25.2 mmol/L (21-32); CHLORIDE 106 mmol/L (98-107); CKMB % 2.3 % (<4); CREATINE KINASE 43 Units/L (39-308); CREATINE KINASE MB < 1.0 ng/mL (0-4.0); CREATININE 0.92 mg/dL (0.70-1.30); SODIUM 138 mmol/L (136-145); TROPONIN I < 0.02 ng/mL (0-1.5); eGFR NON BLACK RACES > 60 (>60)
[2019-09-02 06:59] LABS: PLATELET MORPHOLOGY COMMENT NORMAL (NORMAL)
[2019-09-02] MEDS ORDERED: PLAVIX PO SCH (09:00)
[2019-09-02] MEDS ORDERED: ASPIRIN 81 MG CHEWTAB PO SCH (09:00)
[2019-09-02] MEDS ORDERED: COREG TAB 3.125 MG PO SCH (09:00)
[2019-09-02 09:42] VITALS: BP 125/70
--- NOTE | 2019-09-02 09:58 | DR.SSS ---
SHORT STAY SUMMARY Admission Date Date of Admission: 09/01/19 Discharge Date Discharge Date: 09/02/19 Admission Diagnoses Admission Diagnoses: Chest pain rule out acute coronary syndrome Coronary artery disease Gastroesophageal reflux disease Hyperlipidemia Colon Cancer Discharge Diagnoses Discharge Diagnoses: Chest pain ruled out ACS CAD GERD HLD Chief Complaint Chief Complaint: chest pain History of Present Illness History of Present Illness: Mr. Garnett is a 74y/o male with a PMH of CAD s/p PCI in October 2018, Colon cancer, GERD, HLD presented with one episode of left sided chest pain that happened yesterday while he was sitting in the recliner. Patient reports he felt intermittent chest pain on the left side with radiation down his arm on and off for 1.5 hours. He had some SOB associated with it, no diaphoresis or nausea. He called Dr. Blanton and was advised to take nitro. He states the pain did not subside within 5 mins so he was told to go to the ED. Patient's pain resolved while he was in the ED. Initial troponin and EKG were normal. Patient was admitted on telemetry overnight for observation. D-dimer was also elevated, CTAP was done which was negative for PE. Past Medical History Past Medical History: Anemia, Dyslipidemia and GERD Additional Medical History: colon mass Past Surgical History Surgical History: Angioplasty/Stents, Bowel Resection and Other Allergies Allergies Allergy/AdvReac Type Severity Reaction Status Date / Time No Known Allergies Allergy Verified 09/01/19 13:57 Medications Home Medications: No Known Allergies Allergy (Verified 09/01/19 13:57) CONTINUE taking the following medications atorvastatin 40 mg PO HS 09/01/19 [History] carvedilol [Coreg] 3.125 mg PO BID 09/01/19 [History] clopidogrel 75 mg PO DAILY 09/01/19 [History] Family History Family Medical History: Cancer and Hypertension Social History Does patient currently use any type of tobacco product: No Have you used tobacco products in the last 12 months: No Does any household member use tobacco: No Alcohol Use: None Drug Use: None Review of Systems Constitutional: No Symptoms Reported Eyes: No Symptoms Reported ENT: No Symptoms Reported Respiratory: Shortness of Breath Cardiovascular: Chest Pain and Light Headedness; denies Palpitations and Edema Gastrointestinal: denies Nausea, Vomiting and Abdominal Pain Genitourinary: No Symptoms Reported Musculoskeletal: No Symptoms Reported Skin: No Symptoms Reported Neurological: No Symptoms Reported Physical Exam Vital Signs: Last Vital Signs Temp 98.4 F 09/02/19 08:00 Pulse 61 09/02/19 08:00 Resp 18 09/02/19 08:00 BP 125/70 09/02/19 08:00 Pulse Ox 97 09/02/19 08:00 Oriented: Normal Eyes: Normal Ear: Normal Nose: Normal Throat: Normal Respiratory: Clear Throughout Cardiovascular: Normal; negative Edema Auscultation: Bowel Sounds: Normal Palpation: Normal Tenderness: Normal Skin: Normal Musculoskeletal: Normal Mood Description: Calm Affect: Normal Speech Pattern: Clear and Appropriate Labs Labs: Laboratory Last Values WBC 2.3 X10^3/uL (3.6-10.0) L 09/02/19 05:30 RBC 3.49 X10^6/uL (4.7-6.0) L 09/02/19 05:30 Hgb 11.3 g/dL (13.5-18.0) L 09/02/19 05:30 Hct 32.5 % (42.0-54.0) L 09/02/19 05:30 MCV 93.3 fL (80.0-100.0) 09/02/19 05:30 MCH 32.3 pg (27.0-34.0) 09/02/19 05:30 MCHC 34.6 g/dL (33.0-35.0) 09/02/19 05:30 RDW 15.7 % (11.6-16.5) 09/02/19 05:30 Plt Count 104 X10^3/uL (150.0-450.0) L 09/02/19 05:30 Plt Count Comment Decreased (ADEQUATE) 09/02/19 05:30 MPV 7.9 fL (7.4-11.0) 09/02/19 05:30 Neut % (Auto) 64.3 % (42.0-75.0) 09/02/19 05:30 Lymph % (Auto) 28.6 % (21.0-51.0) 09/02/19 05:30 [place] % (Auto) 4.2 % (0.0-13.0) 09/02/19 05:30 Eos % (Auto) 2.3 % (0.9-2.9) 09/02/19 05:30 Baso % (Auto) 0.6 % (0.2-1.0) 09/02/19 05:30 Neut # (Auto) 1.5 x10^3/uL (2.2-4.8) L 09/02/19 05:30 Lymph # (Auto) 0.6 X10^3/uL (1.3-2.9) L 09/02/19 05:30 [place] # (Auto) 0.1 x10^3/uL (0.3-0.8) L 09/02/19 05:30 Eos # (Auto) 0.1 x10^3/uL (0.0-0.2) 09/02/19 05:30 Baso # (Auto) 0.0 X10^3/uL (0.0-0.1) 09/02/19 05:30 Absolute Nucleated RBC 0.2 /100WBC 09/02/19 05:30 Total Counted 100 09/02/19 05:30 Neutrophils % (Manual) 69 % (39-76) 09/02/19 05:30 Lymphocytes % (Manual) 29 % (13-43) 09/02/19 05:30 Monocytes % (Manual) 2 % (4-9) L 09/02/19 05:30 Plt Morphology Comment Normal (NORMAL) 09/02/19 05:30 RBC Morphology Normal (NORMAL) 09/02/19 05:30 D-Dimer 2920 ng/mL (0-400) H* 09/01/19 14:39 Sodium 138 mmol/L (136-145) 09/02/19 05:30 Corrected Sodium TNP 09/02/19 05:30 Potassium 4.0 mmol/L (3.5-5.1) 09/02/19 05:30 Chloride 106 mmol/L (98-107) 09/02/19 05:30 Carbon Dioxide 25.2 mmol/L (21-32) 09/02/19 05:30 BUN 11 mg/dL (7-18) 09/02/19 05:30 Creatinine 0.92 mg/dL (0.70-1.30) 09/02/19 05:30 Est GFR (MDRD) Af Amer > 60 (>60) 09/02/19 05:30 Est GFR (MDRD) Non-Af > 60 (>60) 09/02/19 05:30 Glucose 97 mg/dL (65-99) 09/02/19 05:30 Calcium 7.9 mg/dL (8.5-10.1) L 09/02/19 05:30 Corrected Calcium 8.7 mg/dL (8.5-10.1) 09/01/19 14:39 Magnesium 2.0 mg/dL (1.7-2.9) 09/01/19 14:39 Total Bilirubin 0.40 mg/dL (0.2-1.0) 09/01/19 14:39 AST 23 Units/L (15-37) 09/01/19 14:39 ALT 21 Units/L (12-78) 09/01/19 14:39 Alkaline Phosphatase 84 Units/L (46-116) 09/01/19 14:39 Creatine Kinase 43 Units/L (39-308) 09/02/19 05:30 CK-MB (CK-2) < 1.0 ng/mL (0-4.0) 09/02/19 05:30 CK/CKMB % Calc 2.3 % (<4) 09/02/19 05:30 Troponin I < 0.02 ng/mL (0-1.5) 09/02/19 05:30 Total Protein 6.3 g/dL (6.4-8.2) L 09/01/19 14:39 Albumin 3.2 g/dL (3.4-5.0) L 09/01/19 14:39 Globulin 3.1 g/dL (2.5-4.5) 09/01/19 14:39 Albumin/Globulin Ratio 1.0 Ratio (1.1-2.1) L 09/01/19 14:39 Assessment/Plan 1: Chest pain rule out ACS - troponin x 1 negative, trend 2 more sets - continue telemetry, resume asa, plavis, statin and coreg. Patient not on any rafael/arb. reports patient was recently taken off medication for HTN due to side effects. 2: CAD s/p PCI in October, 4 stents in [place] - continue home medications, sees Dr. Blanton 3: HLD: continue statin 4: Hx of colon cancer s/p colon resection Hospital Course Hospital Course: Patient was admitted for chest pain rule out ACS. He was on telemetry, troponins x 3 negative with no EKG changes. He has not had any more episodes since admission. He has been ambulating in the room with no symptoms. Patient is on room air with normal vital signs. Patient had a CTA done on admission, negative for PE but did show multiple pulmonary nodules and AAA 4 cm. Patient was made aware of these results. He will follow up with Dr. Blanton and PCP Dr. Diaz within one week. No medication changes, resume home medications. Patient not on rafael/arb, reports patient was recently taken off a blood pressure medication due to side effects, not able to recall the name of the medication. Patient advised to follow up with cardiology and discuss medications. Patient stable for discharge. Discharge Medications Discharge Medications: Home Medication List atorvastatin 40 mg PO HS 09/01/19 [History] carvedilol [Coreg] 3.125 mg PO BID 09/01/19 [History] clopidogrel 75 mg PO DAILY 09/01/19 [History] Prescriptions: Discharge Disposition Discharge Disposition: Home
== END 2019-09-02 11:20 | disposition home or self-care (01) ==
LOC: MED/SURG 13:50 → ER 13:50 → MED/SURG 18:42
PROVIDERS: ADMIT Internal Medicine; ATTEND Obstetrics & Gynecology Obstetrics
DX: I25.10 Atherosclerotic heart disease of native coronary artery without angina pectoris; I71.4 Abdominal aortic aneurysm, without rupture; R07.89 Other chest pain; R91.8 Other nonspecific abnormal finding of lung field; K21.9 Gastro-esophageal reflux disease without esophagitis; I10 Essential (primary) hypertension; R94.31 Abnormal electrocardiogram [ECG] [EKG]; E78.49 Other hyperlipidemia; Z85.038 Personal history of other malignant neoplasm of large intestine; R06.02 Shortness of breath
CPT/HCPCS: 36415; 71010; 71045; 71275; 80048; 80053; 82550; 82553; 83735; 84484; 85025; 85378; 93005; 94760; 96360; 96361; 96365; 96367; 99284; A4222; G0378; J1642; J7030

== ENCOUNTER 2020-01-03 09:50 | Observation (INO) ==
[2020-01-03] MEDS ORDERED: DUONEB 0.5 MG/3 MG (3 mL) NEB ONE ×2 (10:12→10:16)
[2020-01-03] MEDS ORDERED: NS 1000 ML 1,000 ML IV ONE (10:12)
--- NOTE | 2020-01-03 10:18 | DR.SOBA ---
HPI Time Seen Time Seen by Provider: 01/03/20 10:06 Primary Care Physician Primary Care Physician: dr sky Complaints Chief Complaint Doctors Comments: A 74 y/o male sent over from outpt. procedure as he c/o SOB. He states that this has worsened over the past 2 months. He has no cough or fever. he relates a hx. of COPD but has no meds. noted treating COPR. He has exercise limitation to < 25 feet due to SOB. He denies chest pain. He has hx. of cancer in stomach, colon, liver and lungs. He does not know the primary cancer site. Chief Complaint:: pt stated he has been short of breath for about 2 months. stated he has copd. pt stated he has had no fever or body aches. pt was scheduled for a colonoscopy this morning but was told to come to the er cause he was short of breath. Self Treatment fo Chief Complaint: had the covid test last week and was called wednesday with negaitive results. COVID-19 Coronavirus risk:travel/contact w/high risk person: No Has patient experienced Coronavirus symptoms: Yes Coronavirus symptoms experienced: Shortness of Breath Source History Provided: Patient Mode of Arrival Mode of Arrival: Wheelchair Timing Onset of Chief Complaint: 11/03/19 Context Onset:: With Light Exertion History of:: COPD Currently on:: Neither Prehospital Care:: None Modifying Factors Worsens:: Exertion Improves:: Rest Associated Signs and Symptoms Associated Signs and Symptoms: None PMH PMH Past Medical History: Yes Past Medical History: Anemia, COPD, Dyslipidemia and GERD Past Surgical History: Yes Surgical History: Angioplasty/Stents, Bowel Resection and Other Family History History of Family Medical Conditions: Yes Family Medical History: Cancer and Hypertension Social History Does patient currently use any type of tobacco product: No Have you used tobacco products in the last 12 months: No Type of Tobacco Use: None Does any household member use tobacco: No Alcohol Use: None Do you use any recreational Drugs:: No Lives With: Family Lives Where: Home Travel Risk Coronavirus risk:travel/contact w/high risk person: No Has patient experienced Coronavirus symptoms: Yes Coronavirus symptoms experienced: Shortness of Breath Infectious screening In the last 2 months have you had wt loss of >10#?: NO Have you had fever, night sweats or hemotysis?: No Have you traveled outside the country in the last 6 months?: No Isolation: Standard ROS Review of Systems Constitutional: No Symptoms Reported Eyes: No Symptoms Reported ENTM: No Symptoms Reported Respiratoy: Short of Breath Cardiovascular: No Symptoms Reported Gastrointestinal/Abdominal: No Symptoms Reported Genitourinary: No Symptoms Reported Neurological: Dizziness (with light exertion) Musculoskeletal: No Symptoms Reported Integumentary: No Symptoms Reported Hematologic/Lymphatic: No Symptoms Reported Endocrine: No Symptoms Reported Psychiatric: No Symptoms Reported All Other Systems: Reviewed and Negative PE Vital Signs Vitals: Temperature 96.7 F Pulse Rate 76 Respiratory Rate 18 Blood Pressure [Left Arm] 106/63 Blood Pressure [Right Arm] 125/70 Blood Pressure 114/67 O2 Sat by Pulse Oximetry 96 General Limitations: No Limitations General Appearance: Alert and In No Apparent Distress Head Head Exam: Normal Inspection, Atraumatic and Normocephalic Eyes Eye exam: Normal Appearance and EOMI ENT ENT Exam: Normal Exam, Normal Oropharynx, Normal External Ear Exam and Mucous Membranes Moist Neck Neck Exam: Normal Inspection, Full ROM and Trachea Midline Chest Chest Inspection: Normal Inspection and Symmetric Chest Wall Rise Respiratory Respiratory Exam: Normal Lung Sounds Bilat Cardiovascular Cardiovascular Exam: Regular Rate, Normal Rhythm, Normal Heart Sounds, +S1 and +S2 Abdominal Exam Abdominal Exam: Normal Inspection, Normal Bowel Sounds and Soft Extremities Extremities Exam: Normal Inspection and Full ROM Back Back Exam: Normal Inspection and Full ROM Neurologic Neurological Exam: Alert and Oriented X3 Psychiatric Psychiatric Exam: Normal Affect and Normal Mood Skin Skin Exam: Dry and Normal Color COURSE Reevaluation 1st: Improved Education/Counseling Education/Counseling: Patient, Education and Counseling Educated On: Treatment, Diagnosis, Prognosis and Needs for Follow Up ROR Labs Reviewed Laboratory Results Reviewed?: Yes Result Diagrams: 01/03/20 10:24 01/03/20 10:24 Laboratory: WBC 5.5 X10^3/uL (3.6-10.0) 01/03/20 10:24 RBC 3.20 X10^6/uL (4.7-6.0) L 01/03/20 10:24 Hgb 11.0 g/dL (13.5-18.0) L 01/03/20 10:24 Hct 32.1 % (42.0-54.0) L 01/03/20 10:24 MCV 100.2 fL (80.0-100.0) H 01/03/20 10:24 MCH 34.4 pg (27.0-34.0) H 01/03/20 10:24 MCHC 34.3 g/dL (33.0-35.0) 01/03/20 10:24 RDW 16.4 % (11.6-16.5) 01/03/20 10:24 Plt Count 224 X10^3/uL (150.0-450.0) 01/03/20 10:24 MPV 7.2 fL (7.4-11.0) L 01/03/20 10:24 Neut % (Auto) 62.0 % (42.0-75.0) 01/03/20 10:24 Lymph % (Auto) 25.4 % (21.0-51.0) 01/03/20 10:24 [place] % (Auto) 10.0 % (0.0-13.0) 01/03/20 10:24 Eos % (Auto) 2.1 % (0.9-2.9) 01/03/20 10:24 Baso % (Auto) 0.5 % (0.2-1.0) 01/03/20 10:24 Neut # (Auto) 3.4 x10^3/uL (2.2-4.8) 01/03/20 10:24 Lymph # (Auto) 1.4 X10^3/uL (1.3-2.9) 01/03/20 10:24 [place] # (Auto) 0.6 x10^3/uL (0.3-0.8) 01/03/20 10:24 Eos # (Auto) 0.1 x10^3/uL (0.0-0.2) 01/03/20 10:24 Baso # (Auto) 0.0 X10^3/uL (0.0-0.1) 01/03/20 10:24 Absolute Nucleated RBC 0.1 /100WBC 01/03/20 10:24 Sample Site Rbra 01/03/20 10:32 ABG pH 7.550 (7.35-7.45) H 01/03/20 10:32 ABG pCO2 20.0 mmHg (35.0-45.0) L 01/03/20 10:32 ABG pO2 60.0 mmHg (80.0-100.0) L 01/03/20 10:32 ABG HCO3 17.5 mmol/L (22-26) L* 01/03/20 10:32 ABG O2 Saturation 94.0 % (90-100) 01/03/20 10:32 ABG Base Excess -2.9 mmol/L (-2.0-2.0) L 01/03/20 10:32 [place] Test N/a 01/03/20 10:32 A-a Gradient 65.0 mmHg 01/03/20 10:32 FiO2 21.0 01/03/20 10:32 Blood Gas Comments Pt maria isabel well elj 01/03/20 10:32 Sodium 136 mmol/L (136-145) 01/03/20 10:24 Corrected Sodium TNP 01/03/20 10:24 Potassium 3.6 mmol/L (3.5-5.1) 01/03/20 10:24 Chloride 102 mmol/L (98-107) 01/03/20 10:24 Carbon Dioxide 23.7 mmol/L (21-32) 01/03/20 10:24 BUN 8 mg/dL (7-18) 01/03/20 10:24 Creatinine 1.29 mg/dL (0.70-1.30) 01/03/20 10:24 Est GFR (MDRD) Af Amer > 60 (>60) 01/03/20 10:24 Est GFR (MDRD) Non-Af 58 (>60) L 01/03/20 10:24 Glucose 110 mg/dL (65-99) H 01/03/20 10:24 Calcium 9.6 mg/dL (8.5-10.1) 01/03/20 10:24 Corrected Calcium TNP 01/03/20 10:24 Total Bilirubin 0.60 mg/dL (0.2-1.0) 01/03/20 10:24 AST 29 Units/L (15-37) 01/03/20 10:24 ALT 16 Units/L (12-78) 01/03/20 10:24 Alkaline Phosphatase 97 Units/L (46-116) 01/03/20 10:24 Total Protein 7.3 g/dL (6.4-8.2) 01/03/20 10:24 Albumin 3.4 g/dL (3.4-5.0) 01/03/20 10:24 Globulin 3.9 g/dL (2.5-4.5) 01/03/20 10:24 Albumin/Globulin Ratio 0.9 Ratio (1.1-2.1) L 01/03/20 10:24 XRAY XRAY Interpreted by: Self X-ray Results: CXR: Hyperinflated lungs with nodular calcifications in both lungs. no cardiomegaly or infiltrates noted. A port-a-cath is noted on Lt. 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
[2020-01-03 10:42] LABS: BASOPHILS % (AUTO) 0.5 % (0.2-1.0); EOSINOPHILS # (AUTO) 0.1 x10^3/uL (0.0-0.2); EOSINOPHILS % (AUTO) 2.1 % (0.9-2.9); HEMATOCRIT 32.1 % (42.0-54.0); LYMPHOCYTES # (AUTO) 1.4 X10^3/uL (1.3-2.9); LYMPHOCYTES % (AUTO) 25.4 % (21.0-51.0); MEAN CORPUSCULAR HEMOGLOBIN 34.4 pg (27.0-34.0); MEAN CORPUSCULAR HGB CONC 34.3 g/dL (33.0-35.0); MEAN CORPUSCULAR VOLUME 100.2 fL (80.0-100.0); MEAN PLATELET VOLUME 7.2 fL (7.4-11.0); MONOCYTES # (AUTO) 0.6 x10^3/uL (0.3-0.8); NEUTROPHILS # (AUTO) 3.4 x10^3/uL (2.2-4.8); PLATELET COUNT 224 X10^3/uL (150.0-450.0); RED CELL DISTRIBUTION WIDTH 16.4 % (11.6-16.5); WHITE BLOOD COUNT 5.5 X10^3/uL (3.6-10.0)
[2020-01-03 10:42] LABS: ABG BASE EXCESS -2.9 mmol/L (-2.0-2.0)
[2020-01-03 10:43] LABS: ABG HCO3 17.5 mmol/L (22-26)
[2020-01-03] MEDS ORDERED: NS 1000 ML 1,000 ML ONE (10:46)
[2020-01-03 10:48] LABS: ALANINE AMINOTRANSFERASE 16 Units/L (12-78); ALBUMIN 3.4 g/dL (3.4-5.0); ALKALINE PHOSPHATASE 97 Units/L (46-116); ASPARTATE AMINO TRANSFERASE 29 Units/L (15-37); BLOOD UREA NITROGEN 8 mg/dL (7-18); CALCIUM 9.6 mg/dL (8.5-10.1); CARBON DIOXIDE 23.7 mmol/L (21-32); CHLORIDE 102 mmol/L (98-107); CREATININE 1.29 mg/dL (0.70-1.30); SODIUM 136 mmol/L (136-145); TOTAL PROTEIN 7.3 g/dL (6.4-8.2); eGFR NON BLACK RACES 58 (>60)
--- NOTE | 2020-01-03 11:04 | RAD ---
HISTORYSOB X 2 MONTHS, metastatic disease, COPDSTUDYCHEST x-ray, 1 VIEWCOMPARISONX-ray 11/28/2019FINDINGSCOPD changes are seen. Probable worsening metastases are seen in the lungs. No large mass is identified. Heart is normal in size. No mediastinal widening is seen. Port catheter terminates in the region of the mid SVC. No pleural effusion or pneumothorax is seen.There is rounded sclerotic focus within the right scapula and possibly another in the region of the left scapula. These are not seen on prior study and could possibly be new bone metastases.IMPRESSIONLikely worsening small metastases throughout the lungs.New small bone metastases in the scapulae are not excluded.Electronically signed by: Fred Dukes (Jan 03, 2020 11:03:01)
[2020-01-03 15:41] VITALS: BMI 20.8
[2020-01-03] MEDS: NS 1000 ML 1,000 ML IV SCH (15:45)
[2020-01-03] MEDS ORDERED: ANTIVERT TAB 25 MG PO PRN (15:46)
[2020-01-03] MEDS: DUONEB 0.5 MG/3 MG (3 mL) NEB SCH ×3 (16:40→21:08)
[2020-01-03] MEDS ORDERED: LIPITOR TAB 40 MG PO SCH (21:00)
[2020-01-03] MEDS: SOLU-Medrol 40 MG VIAL IVP SCH (21:47)
[2020-01-03] MEDS: COREG TAB 3.125 MG PO SCH (21:47)
[2020-01-04] MEDS: NS 1000 ML 1,000 ML IV SCH ×2 (05:58→15:19)
[2020-01-04] MEDS ORDERED: PLAVIX PO SCH (09:00)
[2020-01-04] MEDS ORDERED: LASIX PO SCH (09:00)
[2020-01-04] MEDS: DUONEB 0.5 MG/3 MG (3 mL) NEB SCH ×3 (09:08→16:05)
[2020-01-04] MEDS: COREG TAB 3.125 MG PO SCH (09:57)
[2020-01-04] MEDS: SOLU-Medrol 40 MG VIAL IVP SCH (09:58)
[2020-01-04] MEDS ORDERED: DIPRIVAN VIAL 20 ML ONE (14:49)
[2020-01-04] MEDS ORDERED: EPHEDRINE SULFATE INJ ONE (14:56)
[2020-01-04 16:12] VITALS: BP 109/56
== END 2020-01-04 16:20 | disposition home or self-care (01) ==
LOC: MED/SURG 09:54 → ER 09:54 → MED/SURG 13:38
PROVIDERS: ADMIT Obstetrics & Gynecology Obstetrics; ATTEND Obstetrics & Gynecology Obstetrics
DX: C78.00 Secondary malignant neoplasm of unspecified lung; C18.9 Malignant neoplasm of colon, unspecified; K57.30 Diverticulosis of large intestine without perforation or abscess without bleeding; Z90.49 Acquired absence of other specified parts of digestive tract; C78.7 Secondary malignant neoplasm of liver and intrahepatic bile duct; I10 Essential (primary) hypertension; R94.31 Abnormal electrocardiogram [ECG] [EKG]; K64.3 Fourth degree hemorrhoids; J44.1 Chronic obstructive pulmonary disease with (acute) exacerbation; K64.2 Third degree hemorrhoids; R06.02 Shortness of breath
CPT/HCPCS: 36415; 36591; 36600; 71010; 71045; 80053; 82803; 85025; 93005; 94640; 94760; 96360; 96361; 96365; 96374; 99100; 99284; G0378; J1642; J2704; J2920; J7030; J7620